=== PATIENT | male | born 1940 | race Caucasian/White ===

== ENCOUNTER 2016-03-07 05:32 | Outpatient (CLI) | payer MEDICARE, OTHER ==
[~2016-03-07] VITALS: Ht 177.8 cm; Wt 87.3 kg
[~2016-03-07 05:32] MED LIST: ACETAMINOPHEN500 M1 PO; ADVIL100 M1 PO; BAYER CHEWABLE81 MG PO; BUTALB-APAP-CA1 EACH PO; FISH OIL 1,2001 CAP PO; GEMFIBROZIL600 MG PO; LEVOTHROXINE; LEVOXYL25 MCG PO; SYNTHROID50 MCG PO
[2016-03-07 07:19] VITALS: Ht 177.8 cm; Wt 87.3 kg
--- NOTE | 2016-03-07 11:53 | NUR ---
1100 XRAY HERE FOR PCXR
--- NOTE | 2016-03-07 11:53 | NUR ---
IV DC WITH CATHER TIP INTACT
--- NOTE | 2016-03-07 11:54 | NUR ---
1130 DEDRICK JAIDEN CALLED PCXR JENNIFER FERGUSON DC
--- NOTE | 2016-03-07 12:07 | NUR ---
VS TAKEN AND PLACED ON POST OP SHEET
== END 2016-03-07 12:20 | disposition home or self-care (01) ==
LOC: D.OPS 05:32 → D.CT 08:00 → D.OPS 08:00 → D.CT 10:30 → D.OPS 12:20
DX: R91.1 Solitary pulmonary nodule (principal)

== ENCOUNTER → 2016-09-18 09:49 | Outpatient (CLI) | payer MEDICARE, OTHER ==
[2016-03-07 07:19] VITALS: BMI 27.6
== END | disposition home or self-care (01) ==
LOC: D.CT 09:49
DX: R91.1 Solitary pulmonary nodule (principal)

== ENCOUNTER 2017-02-21 13:35 | Emergency (ER) | payer MEDICARE, OTHER ==
[2016-03-07 07:19] VITALS: BMI 27.6
== END 2017-02-21 16:03 | disposition home or self-care (01) ==
LOC: D.ER 13:35
DX: J06.9 Acute upper respiratory infection, unspecified (principal); J02.9 Acute pharyngitis, unspecified; J44.9 Chronic obstructive pulmonary disease, unspecified; I10 Essential (primary) hypertension

== ENCOUNTER → 2017-03-29 15:57 | Outpatient (CLI) | payer MEDICARE, OTHER ==
[2016-03-07 07:19] VITALS: BMI 27.6
== END | disposition home or self-care (01) ==
LOC: D.RAD 15:57
DX: R05 Cough (principal)

== ENCOUNTER → 2017-04-12 11:21 | Outpatient (CLI) | payer MEDICARE, OTHER ==
[2016-03-07 07:19] VITALS: BMI 27.6
== END | disposition home or self-care (01) ==
LOC: D.CT 11:21
DX: R91.1 Solitary pulmonary nodule (principal)

== ENCOUNTER → 2017-07-16 11:36 | Outpatient (CLI) | payer MEDICARE, OTHER ==
[2016-03-07 07:19] VITALS: BMI 27.6
== END | disposition home or self-care (01) ==
LOC: D.LAB 11:36
DX: M79.644 Pain in right finger(s) (principal)

== ENCOUNTER 2017-12-03 11:27 | Outpatient (CLI) | payer MEDICARE, OTHER ==
[~2017-12-03] VITALS: Ht 177.8 cm; Wt 90.9 kg
--- NOTE | ~2017-12-03 | HP ---
PATIENT: RIO GUZMAN MEDICAL RECORD: [id number] ACCOUNT: [id number] LOCATION:[facility] : 40 ADMISSION DATE: 12/03/17 PCP: RENA VELASQUEZ MD HISTORY AND PHYSICAL EXAMINATION DIAGNOSES: 1. Unstable angina. 2. Coronary artery disease. 3. Previous percutaneous transluminal coronary angioplasty stent. 4. Hyperlipidemia. HISTORY OF PRESENT ILLNESS: This is a gentleman who presents with 2-3 days of increasing episodes of chest pain, severe chest pain last night. He does have a history of coronary artery disease. Last cardiac stent in 2016 at [facility]. His EKG has nonspecific ST-T abnormalities, especially inferiorly and suggests a previous anteroseptal myocardial infarction. PHYSICAL EXAMINATION: GENERAL APPEARANCE: Well nourished, well developed, appears stated age. Level of distress, comfortable. PSYCHIATRIC: Mental status, alert, normal affect. Orientation, oriented to time, place and person. EYES: Lids and conjunctivae, noninjected. No discharge, no pallor. ENT: Lips, teeth, gums, normal dentition. Oropharynx, no cyanosis, no pallor. NECK: Carotid arteries, bilateral normal upstroke, no bruits, no thrills. JUGULAR VEINS: No jugular venous pressure or distention. CERVICAL LYMPH NODES: Nontender, nonenlarged. THYROID: Not enlarged. Nontender. No nodules. LUNGS: Respiratory effort, unlabored. CHEST: Normal curvature. No thoracic deformity. No chest wall tenderness. Percussion, resonant. Auscultation, clear. No wheezes, no rales, no rhonchi. CARDIOVASCULAR: Precordial exam, nondisplaced. No heaves or pericardial thrills. Rate and rhythm, regular. Heart sounds, normal S1, normal S2. No S3, no gallop, no rub. Systolic murmur, not heard. Diastolic murmur, not heard. EXTREMITIES: No cyanosis, no edema. Peripheral pulses, full and equal in all extremities, except as noted. No bruits appreciated. ABDOMEN: Soft, nondistended. Normal aorta. No bruit. Nontender. No masses. Liver, nontender, no hepatomegaly. Spleen, nontender, no splenomegaly. MUSCULOSKELETAL: No joint tenderness. No joint swelling. No erythema. NEUROLOGICAL: Normal gait, normal strength, normal tone. SKIN: Warm and dry. REVIEW OF SYSTEMS: The patient reports easy bruising but reports no swollen glands. The patient reports no fever, no night sweats, no significant weight gain, no significant weight loss. No significant exercise tolerance. The patient reports no dry eyes, no irritation, no vision change. Patient reports no difficulty hearing and no ear pain. Patient reports no frequent nose bleeds or nose and sinus problems. Patient reports on arm pain on exertion. No shortness of breath while lying down. No history of heart murmur. Patient reports no cough, no wheezing or coughing up blood. Patient reports no abdominal pain, no vomiting. Normal appetite. No diarrhea and not vomiting blood. No nausea and no constipation. Patient reports no incontinence. No difficulty urinating. No hematuria. No increased frequency. Patient reports no muscle aches. No weakness, no arthralgias, no back pain. No swelling of the extremities. Patient reports no abnormal mole, no jaundice, no rashes. Reports HISTORY AND PHYSICAL [id number] KUZMANOVIC,RATKO no loss of consciousness. No weakness and no numbness. No seizures, dizziness, or headaches. The patient reports no depression, no sleep disturbance, feeling safe in a relationship and no alcohol abuse. Patient reports on fatigue. Reports no runny nose or sinus pressure. No itching, no hives, and no frequent sneezing. OVERALL IMPRESSION: Unstable anginal symptomatology. We will proceed with coronary angiography. Further care depends upon findings of the angiography. TRANSINT:[id number] Voice Confirmation ID: [id number] DOCUMENT ID: [id number] JULIOCESAR HIGHTOWER MD at 0923 CC: [id number] DICTATION DATE: 12/03/17 1301 ELEMENTARY TUTOR: 12/03/17 1327 DEP CLI 12/03/17 [facility] [address] [place] [id number]
--- NOTE | ~2017-12-03 | HEMODYNAMI ---
PATIENT:RIO GUZMAN MEDICAL RECORD: [id number] : 40 LOCATION:[facility] ADMISSION DATE: 12/03/17 Generatedon:12/03/201715:20 Patient name: RIO GUZMAN Patient #: [id number] SSN: : 1940 Date of study: 12/03/2017 Page: Of Hemodynamic Procedure Report Patient Data Patient Demographics Procedure consent was obtained First Name: RIO Gender: Male Last Name: THOMAS : 1940 Patient #: [id number] Age: 77 year(s) Race: Unknown Additional ID: [id number] Contact details Address: [address] [place] [address] [place] State: [place] City: [place] Zip code: [address] Past Medical History Allergies: No known allergies Admission Admission Data Admission Date: 12/03/2017 Admission Time: 11:27 Lab Results Lab Result Date: 12/03/2017 Lab Result Time: 0:00 Biochemistry Name Units Result Min Max BUN mg/dl 26 --(----)-* 7 18 Creatinine mg/dl 1.1 --(--*-)-- 0.6 1.3 CBC Name Units Result Min Max Hemoglobin g/dl 15.7 --(--*-)-- 13.5 17.5 Procedure Procedure Types Cath Procedure Diagnostic Procedure C [facility] w/Coronaries Procedure Description Procedure Date Procedure Date: 12/03/2017 Procedure Start Time: 15:11 Procedure End Time: 15:17 Procedure Staff Name Function Jona Eason MD Performing Physician Mojgan Cash RT Monitor Tyron Hidalgo RT Scrub Juve Henry RN Nurse Procedure Data Cath Procedure Fluoroscopy Diagnostic fluoroscopy Total fluoroscopy Time: 1.1 time: 1.1 min min Diagnostic fluoroscopy Total fluoroscopy dose: 285 dose: 285 mGy mGy Contrast Material Contrast Material Type Amount (ml) Isovue 300 47 Entry Location Entry Primary Successful Side Size Upsize Upsize Entry Closure Buenrostro ccessful Closure Location (Fr) 1 (Fr) 2 (Fr) Remarks Device Remarks Radial Right 6 Fr Mechanical artery Short Compression Estimated blood loss: 5 ml Diagnostic catheters Device Type Used For End Catheter Placement DIAGNOSTIC [place] 110cm 5 Procedure Fr catheter ([id number]) Procedure Complications No complications Procedure Medications Medication Administration Route Dosage Oxygen etCO2 Nasal cannula 2 l/min Lidocaine 2% added to field 20 Heparin Flush Bag added to field 2 bags (1000units/500ml NS) 0.9% NaCl I.V. 100 ml/hr Radial Cocktail I.A. 1 syringe (Verapomil 2mg/Nitro 400mcg/Heparin 1500units) Versed I.V. 1 mg Fentanyl I.V. 50 mcg Versed I.V. 1 mg Fentanyl I.V. 50 mcg Hemodynamics Rest Heart Rate: 79 (bpm) Snapshots Pre Cath Intra NCS Post Cath Vital Signs Time Heart Resp SPO2 etCO2 NIBP (mmHg) Rhythm Pain Sedation Rate (ipm) (%) (mmHg) Status Level (bpm) 15:01:29 77 18 98 31.6 143/76(110) NSR 0 (11) 10(A) , No pain 15:06:12 73 12 96 39.2 120/73(104) NSR 0 (11) 10(A) , No pain 15:10:55 77 23 96 40 121/70(94) NSR 0 (11) 9(A) , No pain 15:15:31 90 13 95 39 93/58(74) NSR 0 (11) 9(A) , No pain 15:19:51 69 14 96 40 96/61(78) NSR 0 (11) 10(A) , No pain Medications Time Medication Route Dose Verified Delivered Reason Notes Effectiveness by by 15:00:20 Oxygen etCO2 2 l/min Jona An used for Nasal Jenaro Henry RN procedure cannula 15:00:27 Lidocaine 2% added 20ml Jona Tenorio for local to vial Jenaro Eason MD anesthetic field 15:01:14 Heparin Flush added 2 bags Jona Tenorio used for Bag to Jenaro Eason MD procedure (1000units/500ml field NS) 15:01:24 0.9% NaCl I.V. 100 Jona An Per ml/hr Jenaro Henry RN physician 15:01:38 Radial Cocktail I.A. 1 Jona Tenorio for (Verapomil syringe Jenaro Eason MD vasodilation 2mg/Nitro 400mcg/Heparin 1500units) 15:06:09 Versed I.V. 1 mg Jona An for sedation Jenaro Henry RN 15:06:13 Fentanyl I.V. 50 mcg Jona An for sedation Jenaro Henry RN 15:11:29 Versed I.V. 1 mg Jona An for sedation Jenaro Henry RN 15:11:35 Fentanyl I.V. 50 mcg Jona An for sedation Jenaro Henry RN Procedure Log Time Note 14:45:00 Juve Henry RN sent for patient. Start room use. 14:45:00 Time tracking: Regular hours (M-F 7:00 - 5:00) 14:45:05 Plan of Care:Hemodynamics will remain stable., Cardiac rhythm will remain stable., Comfort level will be maintained., Respiratory function will remain adequate., Patient/ family verbilizes understanding of procedure., Procedure tolerated without complication., Recovers from procedure without complications.. 14:45:50 H&P Date Dictated: 12/03/2017 ER History on chart.. 14:46:15 Lab Result : BUN 26 mg/dl 14:46:15 Lab Result : Creatinine 1.1 mg/dl 14:46:15 Lab Result : Hemoglobin 15.7 g/dl 14:46:28 Patient allergic to No known allergies 14:53:04 Patient received from ED to CCL 1 Alert and oriented. Tansferred to table in Supine position. 14:53:05 Warm blankets applied, and moreno hugger turned on for patient comfort. 14:53:05 Correct patient and procedure confirmed by team. 14:53:10 Signed procedure consent form obtained from patient. 15:00:20 Oxygen 2 l/min etCO2 Nasal cannula was administered by Juve Henry RN; used for procedure; 15:00:27 Lidocaine 2% 20ml vial added to field was administered by Jona Eason MD; for local anesthetic; 15:00:35 Vital chart was started 15:01:14 Heparin Flush Bag (1000units/500ml NS) 2 bags added to field was administered by Jona Eason MD; used for procedure; 15:01:24 0.9% NaCl 100 ml/hr I.V. was administered by Juve Henry RN; Per physician; 15:01:38 Radial Cocktail (Verapomil 2mg/Nitro 400mcg/Heparin 1500units) 1 syringe I.A. was administered by Jona Eason MD; for vasodilation; 15:04:03 Baseline sample Acquired. 15:04:22 Rhythm: sinus rhythm 15:04:39 Family in waiting room. 15:04:59 Pre-procedure instructions explained to patient. 15:04:59 Pre-op teaching completed and patient verbalized understanding. 15:05:12 Was the patient premedicated? Yes 15:05:13 Is patient on blood thinner?Yes 15:05:16 Patient diabetic? No. 15:05:21 Previous problem with sedation/anesthesia? No ? 15:05:22 Snore? No 15:05:24 Sleep apnea? No 15:05:25 Deviated septum? No 15:05:26 Opens mouth fully? Yes 15:05:27 Sticks out tongue? Yes 15:05:28 Airway obstruction? No ? 15:05:31 Dentures? No ? 15:05:33 Modified Wil's test Ulnar < 7 seconds 15:05:36 Patient pain scale 0/10 ?. 15:05:42 IV patent on arrival in left hand with 0.9% NaCl at KVO. 15:05:44 Lab results completed and on chart. 15:05:47 Right Radial & Right Groin area was prepped with chlora-prep and draped in sterile fashion 15:05:48 Alarms reviewed by R. N. 15:05:48 Sharps counted by scrub and verified by R.N. 15:05:49 --------ALL STOP TIME OUT------ 15:05:49 Final Timeout: patient, procedure, and site verified with staff and physician. All members of the team are in agreement. 15:05:51 Right Radial & Right Groin site verified by team. 15:05:54 Physical assessment completed. ASA score P 2 - A patient with mild systemic disease as per Jona Eason MD. 15:05:57 Sedation plan: IV Moderate Sedation Medication:Versed, Fentanyl 15:06:09 Versed 1 mg I.V. was administered by Juve Henry RN; for sedation; 15:06:13 Fentanyl 50 mcg I.V. was administered by Juve Henry RN; for sedation; 15:07:11 Use device set Radial Dx or PCI 15:07:12 ACIST Syringe (90973) opened to sterile field. 15:07:13 Bag Decanter (2001S) opened to sterile field. 15:07:14 ACIST Hand Control (37094) opened to sterile field. 15:07:15 ACIST Manifold (74295) opened to sterile field. 15:07:15 Tegaderm 4 x 4 (1626W) opened to sterile field. 15:07:16 Medline Cath Pack ([id number]) opened to sterile field. 15:07:16 DIAGNOSTIC WIRE .035 260cm J wire (389190) opened to sterile field. 15:07:17 MBrace Wrist Support ([id number]) opened to sterile field. 15:07:17 SHEATH 6Fr Prelude Radial ([id number]) opened to sterile field. 15:10:42 Procedure started. 15:10:42 Full Disclosure recording started 15:10:44 Zero performed for pressure channel P1 15:11:04 Local anesthetic to right radial artery with Lidocaine 2% by Jona Eason MD.INITIAL ACCESS ONLY 15:11:29 Versed 1 mg I.V. was administered by Juve Henry RN; for sedation; 15:11:33 A 6 Fr Short sheath was inserted into the Right Radial artery 15:11:35 Fentanyl 50 mcg I.V. was administered by Juve Henry RN; for sedation; 15:11:51 A DIAGNOSTIC [place] 110cm 5 Fr catheter (159099) was advanced over the wire and used for Procedure. 15:12:39 LV gram done using JENKINS 15:12:41 Injector settings: Ml/sec: 7, Volume: 15, 15:13:09 EF : 40 % 15:13:59 LCA angiography performed. 15:14:35 RCA angiography performed. 15:14:38 Catheter removed. 15:14:53 TR BAND Standard ([id number]) opened to sterile field. 15:14:57 Procedure ended.(Physican Out) 15:15:15 Sheath removed intact; hemostasis achieved with Mechanical Compression to the Right Radial artery. 15:15:19 Fluoroscopy time 01.10 minutes. 15:15:46 Fluoroscopy dose: 285 mGy 15:15:46 Flurop Dose total: 285 15:15:51 Contrast amount:Isovue 300 47ml. 15:15:52 Sharps counted by scrub and verified by R.N. 15:16:02 TR band inflated with 10cc of air. 15:16:07 Post-procedure physical assessment completed. ASA score P 2 - A patient with mild systemic disease as per Jona Eason MD. 15:16:10 Post procedure rhythm: unchanged. 15:16:12 Estimated blood loss: 5 ml 15:16:14 Post procedure instruction explained to patient.Patient verbalizes understanding. 15:16:14 Patient needs reinforcement of post procedure teaching. 15:16:46 Procedure and supply charges have been captured, reviewed, submitted and are correct. 15:16:50 Procedure Complication : No complications 15:16:53 Vital chart was stopped 15:16:53 See physician's report for complete and final results. 15:16:55 Report given to Pre/Post Procedure Room. 15:16:58 Patient transfered to Pre/Post Procedure Room with Bed. 15:16:59 Procedure ended. 15:16:59 Full Disclosure recording stopped 15:17:02 End room use (Document Last) Device Usage Item Name Manufacture Quantity Catalog Number Hospital Part Current M inimal Lot# / Charge Number Stock Stock Serial# Code ACIST Syringe Acist 1 82450 152858 690212 513473 2 0 (80003) [employer] Inc Bag Decanter Microtek 1 2001S 297513 52182 996801 5 (2001S) Medical Inc. ACIST Hand Acist 1 33865 253958 675929 660152 5 Control (84503) [employer] Inc ACIST Manifold Acist 1 49557 356965 440287 537644 5 (23479) [employer] Systems Inc Tegaderm 4 x 4 3M 1 1626W 964113 888672 340032 5 (1626W) Medline Cath Cardinal 1 [id number] 037186 69701 223461 5 [facility] ([id number]) DIAGNOSTIC WIRE St Jacky 1 291959 084648 565865 685583 3 0 .035 260cm J wire (959256) MBrace Wrist Advanced 1 140-0250-00 717708 75574 263759 5 Support Vascular ([id number]) Dynamics SHEATH 6Fr Merit 1 [id number] 150716 055201 374626 5 Prelude Radial Medical ([id number]) DIAGNOSTIC Terumo 1 40-5011 965134 958016 715626 5 [place] 110cm 5 Fr catheter (225870) TR BAND Terumo 1 [id number] 041756 535262 401031 4 0 Standard ([id number]) Signature Audit [place] Stage Time Signature Unsigned Intra-Procedure 12/03/2017 Mojgan Cash 3:20:26 PM RT(R) Signatures Monitor : Mojgan Cash Signature : RT Date : Time : [place] [id number] [place] [id number]
--- NOTE | ~2017-12-03 | OP ---
PATIENT NAME: RIO GUZMAN MEDICAL RECORD: [id number] :40 LOCATION:D.[facility] ADMISSION DATE: SURGEON: JULIOCESAR HIGHTOWER MD DATE OF OPERATION: 12/03/2017 PROCEDURES: 1. Left heart catheterization. 2. Selective coronary angiography. 3. Left ventriculogram. INDICATION: Chest pain compatible with angina. PROCEDURE IN DETAIL: After informed consent was obtained and after a detailed description of risks, benefits as well as alternative therapies, the patient elected to proceed with angiogram and heart catheterization. The right radial area was prepped and draped in normal sterile fashion. Right radial artery was cannulated via modified Seldinger technique with placement of 5-Gabonese sheath. All catheters exchanged through this sheath. FINDINGS: Left ventriculogram was performed in standard 30-degree JENKINS view, reveals good cardiac wall motion throughout all segments. Overall ejection fraction estimated 60%. SELECTIVE CORONARY ANGIOGRAPHY: Left main, left anterior descending, left circumflex, and right coronary artery are all smooth-walled vessels with no angiographic evidence of coronary artery disease. OVERALL IMPRESSION: 1. No angiographic evidence of coronary artery disease. 2. Normal left heart pressures. 3. Normal left ventricular systolic all function. Chest pain is noncardiac in etiology. No further cardiac workup needs to be ascertained. TRANSINT:[id number] Voice Confirmation ID: [id number] DOCUMENT ID: [id number] JULIOCESAR HIGHTOWER MD at 0923 CC: [id number] DICTATION DATE: 12/03/17 1520 OIL WELL SERVICE OPERATOR: 12/03/17 1618 DEP CLI 12/03/17 [place] [id number] [place] [id number]
[2017-12-03 11:29] VITALS: Ht 177.8 cm; Wt 90.9 kg
[2017-12-03 12:11] LABS: BASOPHILS 0.2 % (0-2); EOSINOPHILS 0.8 % (0-7); HEMATOCRIT 44.3 % (42.0-54.0); HEMOGLOBIN 15.7 g/dL (13.5-17.5); IMMATURE GRANULOCYTES 0.2 % (0-5); LYMPHOCYTES 41.5 % (15-50); MCH 32.1 pg (26.0-34.0); MCHC 35.4 g/dL (31.0-37.0); MCV 90.6 fL (80.0-100.0); MEAN PLATELET VOLUME 9.9 fL (7.4-10.4); MONOCYTES 5.7 % (2-11); NEUTROPHILS 51.6 % (40-80); PLATELET COUNT 134 10x3/uL (130-400); RBC 4.89 10x6/uL (4.20-6.10); RDW 12.1 % (11.5-14.5); WBC 6.7 10x3/uL (4.8-10.8)
[2017-12-03 12:21] LABS: APTT 25.3 SECONDS (22.8-39.4); INR 0.98 (0.85-1.17); PROTIME 12.6 SECONDS (11.6-15.0)
[2017-12-03 12:23] LABS: D-DIMER-QUANTITATIVE < 0.27 ug/mLFEU (0.20-0.54)
[2017-12-03 12:27] LABS: ALBUMIN 4.3 g/dL (3.4-5.0); ALKALINE PHOSPHATASE 71 U/L (46-116); ALT (SGPT) 24 U/L (10-68); BILIRUBIN - TOTAL 1.12 mg/dL (0.2-1.3); CALC OSMOLALITY 282 mosm/kg (275-300); CALCIUM 9.3 mg/dL (8.5-10.1); CARBON DIOXIDE 27.9 mmol/L (21.0-32.0); CHLORIDE - SERUM 101 mmol/L (98-107); CREATININE - SERUM 1.1 mg/dL (0.6-1.3); GLUCOSE 131 mg/dL (74-106); POTASSIUM - SERUM 4.1 mmol/L (3.5-5.1); PROTEIN - SERUM 7.8 g/dL (6.4-8.2); SODIUM 138 mmol/L (136-145); UREA NITROGEN 26 mg/dL (7-18); eGFR NON AFRICAN AMERICAN 69 mL/min (90-120)
[2017-12-03 12:39] LABS: CKMB 0.8 U/L (0.0-3.6); CREATINE KINASE 46 UL (21-232); MAGNESIUM - SERUM 2.1 mg/dL (1.8-2.4); PRO BNP 38 pg/mL (0-450); THYROID STIMULATING HORMONE 1.11 uIU/mL (0.36-3.74)
[2017-12-03 12:41] LABS: TROPONIN-I < 0.017 ng/mL (0.000-0.060)
[2017-12-03 14:45] VITALS: BP 139/77
== END 2017-12-03 17:45 | disposition home or self-care (01) ==
LOC: D.ER 11:27 → D.CATH 11:27 → EDSTATUS 13:07 → D.CATH 17:45
PROVIDERS: Family Medicine
DX: R07.89 Other chest pain (principal); I25.10 Atherosclerotic heart disease of native coronary artery without angina pectoris; Z95.5 Presence of coronary angioplasty implant and graft; E78.5 Hyperlipidemia, unspecified; Z01.812 Encounter for preprocedural laboratory examination

== ENCOUNTER → 2018-01-09 08:31 | Outpatient (CLI) | payer MEDICARE, OTHER ==
[2017-12-03 11:29] VITALS: BMI 28.7
== END | disposition home or self-care (01) ==
LOC: D.CT 08:00
DX: R91.1 Solitary pulmonary nodule (principal)

== ENCOUNTER 2018-03-16 23:05 | Inpatient (IN) | payer MEDICARE, OTHER ==
[~2018-03-16] VITALS: Ht 177.8 cm; Wt 88.5 kg
[2018-03-16 23:25] LABS: BASOPHILS 0.1 % (0-2); EOSINOPHILS 0.1 % (0-7); HEMATOCRIT 38.1 % (42.0-54.0); IMMATURE GRANULOCYTES 0.5 % (0-5); LYMPHOCYTES 20.9 % (15-50); MCH 31.5 pg (26.0-34.0); MCHC 34.1 g/dL (31.0-37.0); MCV 92.3 fL (80.0-100.0); MEAN PLATELET VOLUME 9.3 fL (7.4-10.4); MONOCYTES 5.8 % (2-11); NEUTROPHILS 72.6 % (40-80); PLATELET COUNT 195 10x3/uL (130-400); RBC 4.13 10x6/uL (4.20-6.10); RDW 11.9 % (11.5-14.5); WBC 13.3 10x3/uL (4.8-10.8)
--- NOTE | 2018-03-16 23:36 | NUR ---
SWITCHED PATIENT FROM 15L NONREBREATHER TO 4L NC PER EDP GRIMALDO
[2018-03-16 23:41] LABS: ALBUMIN 3.3 g/dL (3.4-5.0); ALKALINE PHOSPHATASE 64 U/L (46-116); ALT (SGPT) 59 U/L (10-68); CALC OSMOLALITY 288 mosm/kg (275-300); CALCIUM 8.4 mg/dL (8.5-10.1); CARBON DIOXIDE 24.7 mmol/L (21.0-32.0); CHLORIDE - SERUM 105 mmol/L (98-107); GLUCOSE 111 mg/dL (74-106); POTASSIUM - SERUM 4.1 mmol/L (3.5-5.1); PROTEIN - SERUM 7.2 g/dL (6.4-8.2); SODIUM 141 mmol/L (136-145); UREA NITROGEN 32 mg/dL (7-18); eGFR NON AFRICAN AMERICAN 77 mL/min (90-120)
[2018-03-16 23:46] LABS: CREATINE KINASE 75 UL (21-232); LIPASE 161 U/L (73-393); PRO BNP 154 pg/mL (0-450); TROPONIN-I < 0.017 ng/mL (0.000-0.060)
[2018-03-16 23:47] VITALS: BP 94/55
[2018-03-17] VITALS (27 sets, daily range): BP systolic 92–157; BP diastolic 47–89; BMI 28.0
--- NOTE | 2018-03-17 00:20 | NUR ---
RN ADMINISTERED IV ZOFRAN PER EDP ORDERS. MONITOR REPORTS HR 203, SVT. EDP AT BEDSIDE. PT MOVED TO TRAUMA ROOM 3.
--- NOTE | 2018-03-17 00:22 | NUR ---
PT PLACED ON NON REBREATHER PER EDP ORDERS.
--- NOTE | 2018-03-17 01:38 | NUR ---
PT LEFT ED VIA STRETCHER FOR CT SCAN, RN AT BEDSIDE. PT TOLERATED SCAN WELL, HR 130-145.
--- NOTE | 2018-03-17 02:03 | NUR ---
PT DAUGHTER, RIYA, PROVIDED PHONE NUMBER [phone]
--- NOTE | 2018-03-17 03:05 | NUR ---
ZOSYN INFUSION STOPPED PRIOR TO TRANSPORT TO ICU. INFUSION COMPLETE.
--- NOTE | 2018-03-17 03:13 | NUR ---
PT REC'D TO ROOM 2309 VIA STRETCHER, PT ABLE TO MOVE SELF OVER TO BED, ALL MONITORS ESTABLISHED, PT AWAKE, ALERT, AND ORIENTED, O2 AT 15 LITERS VIA HIGH FLOW NC, O2 SAT 96%, CM-SR @ 84, LEFT A/C PIV AND LEFT HAND PIV BOTH PATENT AND TAPED SECURELY, SALINE LOCKED, RIGHT WRIST PIV WITH NS BOLUS INFUSING, PT DENIES PAIN OR SOB, BP STABLE, BED IN LOW POSITION, CALL LIGHT IN REACH.
--- NOTE | 2018-03-17 04:30 | NUR ---
I AND O COMPETED AND CHARTED
--- NOTE | 2018-03-17 05:00 | NUR ---
PT ASSISTED TO STAND AT BS TO VOID VIA URINAL, VOIDED 350CC DARK YELLOW URINE, PT GOT SELF BACK TO BED, DENIES PAIN OR NEEDS, SR UP X 2, CALL LIGHT WITHIN REACH.
--- NOTE | 2018-03-17 08:09 | NUR ---
0700 AWAKE ALERT VOICES NO COMPLAINTS
--- NOTE | 2018-03-17 12:22 | NUR ---
0900 APPETITE GOOD WANTS TO REST VOIDING WITHOUT DIFFICULTY
--- NOTE | 2018-03-17 12:23 | NUR ---
[address] ESPARZA ROUNDING ON PATIENT WITH UPDATES PROVIDED
--- NOTE | 2018-03-17 12:25 | NUR ---
1225 VISITORS AT BEDSIDE HENOK ALICEA
--- NOTE | 2018-03-17 19:48 | NUR ---
PT RECEIVED WITH EYES CLOSED AND CHEST RISING. EASILY AWOKEN TO VERBAL STIMULI. DENIES PAIN. VITAL SIGNS WITHIN NORMAL LIMITS. PT ALERT AND ORIENTED. CALL LIGHT IN REACH. ASSESSMENT COMPLETED, SEE FLOW SHEET. WILL CONTINUE TO OBSERVE.
--- NOTE | 2018-03-17 20:09 | NUR ---
1700 DR ESPARZA ROUNDING ON PATIENT O2 REDUCED TO 3L/ HIGH FLOW . 02 SAT REMAINS 97%
--- NOTE | 2018-03-17 20:09 | NUR ---
1300 VOIDING WITHOUT DIFFICULTY VOICES NO COMPLAINTS
--- NOTE | 2018-03-17 23:05 | NUR ---
PT RESTING WITH EYES CLOSED AND CHEST RISING. EASILY AWOKEN TO VERBAL STIMULI. REASSESSMENT COMPLETED, SEE FLOW SHEET. WILL CONTINUE TO OBSERVE.
[2018-03-18] VITALS (11 sets, daily range): BP systolic 118–154; BP diastolic 56–98
--- NOTE | 2018-03-18 01:58 | NUR ---
PT WITH EYES CLOSED AND CHEST RISING. NO S/S OF DISTRESS. WILL CONTINUE TO OBSERVE.
--- NOTE | 2018-03-18 03:21 | NUR ---
REASSESSMENT COMPLETED, SEE FLOW SHEET. URINE COLLECTED AND SENT TO LAB.
[2018-03-18 03:29] LABS: APPEARANCE CLEAR (CLEAR); BILIRUBIN NEGATIVE (NEGATIVE); COLOR YELLOW (YELLOW); GLUCOSE 100 mg/dL (NEGATIVE); KETONE NEGATIVE (NEGATIVE); NITRITE NEGATIVE (NEGATIVE); PH 5.5 (5.0-6.0); PROTEIN NEGATIVE (NEGATIVE); SPECIFIC GRAVITY 1.015 (1.005-1.020); UROBILINOGEN NORMAL (NORMAL)
--- NOTE | 2018-03-18 05:25 | NUR ---
PT WITH EYES CLOSED AND CHEST RISING. NO S/S OF DISTRESS. CALL LIGHT IN REACH. WILL CONTINUE TO OBSERVE.
[2018-03-18 05:32] LABS: CARBON DIOXIDE 24.9 mmol/L (21.0-32.0); CHLORIDE - SERUM 104 mmol/L (98-107); CREATININE - SERUM 0.9 mg/dL (0.6-1.3); POTASSIUM - SERUM 3.9 mmol/L (3.5-5.1); SODIUM 138 mmol/L (136-145); eGFR NON AFRICAN AMERICAN 87 mL/min (90-120)
[2018-03-18 05:39] LABS: HEMATOCRIT 36.6 % (42.0-54.0); HEMOGLOBIN 12.3 g/dL (13.5-17.5); MCH 31.1 pg (26.0-34.0); MCHC 33.6 g/dL (31.0-37.0); MCV 92.7 fL (80.0-100.0); MEAN PLATELET VOLUME 9.6 fL (7.4-10.4); PLATELET COUNT 183 10x3/uL (130-400); RBC 3.95 10x6/uL (4.20-6.10); RDW 11.8 % (11.5-14.5)
[2018-03-18 05:40] LABS: CALC OSMOLALITY 284 mosm/kg (275-300); GLUCOSE 180 mg/dL (74-106); UREA NITROGEN 23 mg/dL (7-18)
[2018-03-18 05:54] LABS: WBC 7.9 10x3/uL (4.8-10.8)
[2018-03-18 08:32] LABS: LYMPHOCYTES 11 % (15-50); MONOCYTES 2 % (2-11); NEUTROPHILS 84 % (40-80); PLATELET ESTIMATE NORMAL
[2018-03-18 08:33] LABS: ROULEAUX OCC
--- NOTE | 2018-03-18 09:47 | NUR ---
0700 AWAKE ALERT DENIES PAIN ASSESSMENT COMPLETE
--- NOTE | 2018-03-18 09:48 | NUR ---
0900 APPETITE GOOD ATE 90% BREAKFAST TRANSFER ORDERS ARE PLACED ON CHART WAITING FOR A ROOM
--- NOTE | 2018-03-18 12:55 | NUR ---
1100 UP AD JAJA IN ROOM WITH NO COMPLAINTS
--- NOTE | 2018-03-18 14:08 | NUR ---
1300 APPETITE GOOD AT BEDSIDE DENIES PAIN FREQUENT NON-PRODUCTIVE COUGH NOTED
--- NOTE | 2018-03-18 14:55 | NUR ---
PT TO ROOM 2218 FROM ICU VIA WHEELCHAIR. PT IS UP AT BEDSIDE. HE IS WITHOUT DISTRESS.
--- NOTE | 2018-03-18 20:00 | NUR ---
ASSESSMENT PER FLOWSHEET. IV PATENT LEFT HAND SALINE LOCKED. TELM. SHOWS SR W/BBB WITH HR 80. SCD'S ON SR UP X2 CALL LIGHT WITHIN REACH. O2 ON 3L/M HIGH FLOW. NO DISTRESS.
--- NOTE | 2018-03-18 21:00 | NUR ---
MARCIO PRATHER PER MAY. RESTING QUIETLY DENIES NEEDS.
--- NOTE | 2018-03-19 00:56 | NUR ---
EYES CLOSED RESPIRATIONS WITH EASE AND UNLABORED. MEDS GIVEN PER MAY.
[2018-03-19 04:09] VITALS: BP 134/75
[2018-03-19 04:55] LABS: BASOPHILS 0.1 % (0-2); EOSINOPHILS 0 % (0-7); HEMATOCRIT 34.8 % (42.0-54.0); HEMOGLOBIN 11.9 g/dL (13.5-17.5); IMMATURE GRANULOCYTES 0.9 % (0-5); LYMPHOCYTES 11.7 % (15-50); MCH 31.2 pg (26.0-34.0); MCHC 34.2 g/dL (31.0-37.0); MCV 91.1 fL (80.0-100.0); MEAN PLATELET VOLUME 9.5 fL (7.4-10.4); MONOCYTES 4.2 % (2-11); NEUTROPHILS 83.1 % (40-80); PLATELET COUNT 185 10x3/uL (130-400); RBC 3.82 10x6/uL (4.20-6.10); RDW 11.8 % (11.5-14.5)
[2018-03-19 04:57] LABS: CALC OSMOLALITY 291 mosm/kg (275-300); CALCIUM 8.6 mg/dL (8.5-10.1); CARBON DIOXIDE 24.5 mmol/L (21.0-32.0); CHLORIDE - SERUM 105 mmol/L (98-107); GLUCOSE 212 mg/dL (74-106); POTASSIUM - SERUM 3.7 mmol/L (3.5-5.1); SODIUM 140 mmol/L (136-145); eGFR NON AFRICAN AMERICAN 77 mL/min (90-120)
[2018-03-19 05:04] LABS: WBC 11.9 10x3/uL (4.8-10.8)
[2018-03-19 05:07] LABS: UREA NITROGEN 33 mg/dL (7-18)
[2018-03-19 08:36] VITALS: BP 132/78
[2018-03-19 13:06] VITALS: BP 127/52
[2018-03-19 17:00] VITALS: BP 138/63
--- NOTE | 2018-03-19 17:54 | MORECARE ---
CASE MANAGEMENT DISCHARGE SUMMARY PATIENT: RIO GUZMAN UNIT: [id number] ADM DATE: 03/17/18 AGE: 77 : 40 SEX: M ROOM/BED: D.2218 AUTHOR: KAITLYNN GILES PHYSICIAN: REFERRING PHYSICIAN: RENA VELASQUEZ MD DATE OF SERVICE: 03/19/18 Discharge Plan Patient Name: RIO GUZMAN Facility: [facility]:[place] : 1940 Planned Disposition: Home Anticipated Discharge Date: 03/21/18 Discharge Date: Expected LOS: 4 Initial Reviewer: [email or web address] Initial Review Date: 03/19/2018 Generated: 03/19/18 6:54 pm DCPIA - Discharge Planning Initial Assessment Updated by [email or web address]: Aele Nunez on 03/19/18 5:52 pm * Is the patient Alert and Oriented? Yes * How many steps to enter\exit or inside your home? * PCP DR. VELASQUEZ * Pharmacy [facility] [address] * Preadmission Environment Home with Family * ADLs Independent * Equipment None * List name and contact numbers for known caregivers / representatives who currently or will assist patient after discharge: RIYA (DAUGHTER) [phone] * Verbal permission to speak to the caregivers and representatives has been obtained from the patient. Yes * Community resources currently utilized None * Additional services required to return to the preadmission environment? Yes * Can the patient safely return to the preadmission environment? Yes * Has this patient been hospitalized within the prior 30 days at any hospital? No Patient Name: RIO GUZMAN Page [id number] at 1754 All edits/amendments must be made on the electronic document DICTATION DATE: 03/19/181753 ENVIRONMENTAL COMPLIANCE MANAGER: VITOR 03/19/181753 RPT#: [id number] DC DATE: STATUS: ADM IN [facility] [address] [place] [address] END OF REPORT
--- NOTE | 2018-03-19 18:03 | MORECARE ---
CASE MANAGEMENT DISCHARGE SUMMARY PATIENT: RIO GUZMAN UNIT: [id number] ADM DATE: 03/17/18 AGE: 77 : 40 SEX: M ROOM/BED: D.2218 AUTHOR: CHAN,DOC PHYSICIAN: REFERRING PHYSICIAN: RENA VELASQUEZ MD DATE OF SERVICE: 03/19/18 Discharge Plan Patient Name: RIO GUZMAN Facility: [facility]:[place] : 1940 Planned Disposition: Home Anticipated Discharge Date: 03/21/18 Discharge Date: Expected LOS: 4 Initial Reviewer: [email or web address] Initial Review Date: 03/19/2018 Generated: 03/19/18 7:03 pm Comments DCP- Discharge Planning Updated by [email or web address]: Alee Nunez on 03/19/18 4:[address] Patient Name: RIO GUZMAN Admission Status: ER Accout number: [id number] Admission Date: 03-17-2018 : 1940 Admission Diagnosis: Attending: RENA VELASQUEZ Current LOS: 2 Anticipated DC Date: 03-21-2018 Planned Disposition: Home Primary Insurance: MEDICARE A & B Discharge Planning Comments: CM MET WITH PATIENT AND FAMILY REGARDING D/C NEEDS AND PLANS. PATIENTS DAUGHTER (RIYA) SPOKE WITH CM. PATIENT LIVES WITH HIS AND WILL RETURN THERE AT DISCHARGE. PATIENTS DAUGHTER STATED SHE WILL DRIVE PATIENT HOME. THERE ARE 7 STEPS TO ENTER HOME AND NO STAIRS ONCE INSIDE. PATIENT IS INDEPENDENT WITH HIS CARE AND HAS NO DME. PATIENTS PCP IS DR. VELASQUEZ AND USES [facility] [address]. PATIENT DOES NOT WANT HOME HEALTH. CM WILL CONTINUE TO FOLLOW PATIENT WITH D/C NEEDS AND PLANS. [facility] [address] RIYA (DAUGHTER) [phone] Camp Recreation Specialist: Alee Nunez DCPIA - Discharge Planning Initial Assessment Updated by [email or web address]: Alee Nunez on 03/19/18 5:52 pm * Is the patient Alert and Oriented? Yes * How many steps to enter\exit or inside your home? * PCP DR. VELASQUEZ * Pharmacy [facility] [address] * Preadmission Environment Home with Family * ADLs Independent * Equipment None * List name and contact numbers for known caregivers / representatives who currently or will assist patient after discharge: RIYA (DAUGHTER) [phone] * Verbal permission to speak to the caregivers and representatives has been obtained from the patient. Yes * Community resources currently utilized None * Additional services required to return to the preadmission environment? Yes * Can the patient safely return to the preadmission environment? Yes * Has this patient been hospitalized within the prior 30 days at any hospital? No Last DP export: 03/19/18 4:54 p Patient Name: RIO GUZMAN Page [id number] at 1803 All edits/amendments must be made on the electronic document DICTATION DATE: 03/19/181801 APPLIANCE SERVICE SUPERVISOR: VITOR 03/19/181801 RPT#: [id number] DC DATE: STATUS: ADM IN [facility] [address] [place] [address] END OF REPORT
[2018-03-19 20:00] VITALS: BP 144/81
--- NOTE | 2018-03-20 03:45 | NUR ---
EYES CLOSED RESPIRATIONS WITH EASE AND UNLABORED.
[2018-03-20 04:19] LABS: BASOPHILS 0.1 % (0-2); EOSINOPHILS 0 % (0-7); HEMATOCRIT 36.9 % (42.0-54.0); HEMOGLOBIN 12.3 g/dL (13.5-17.5); IMMATURE GRANULOCYTES 1.4 % (0-5); LYMPHOCYTES 10.6 % (15-50); MCH 30.8 pg (26.0-34.0); MCHC 33.3 g/dL (31.0-37.0); MCV 92.3 fL (80.0-100.0); MEAN PLATELET VOLUME 9.4 fL (7.4-10.4); MONOCYTES 3.5 % (2-11); NEUTROPHILS 84.4 % (40-80); PLATELET COUNT 212 10x3/uL (130-400); WBC 13.3 10x3/uL (4.8-10.8)
[2018-03-20 05:21] VITALS: BP 146/81
[2018-03-20 08:47] VITALS: BP 133/78
--- NOTE | 2018-03-20 10:20 | NUR ---
PATIENT SATS WNL WITHOUT O2. RT TURNED O2 OFF. PATIENT WANTS TO LEAVE NC ON. WILL CONTINUE TO MONITOR. CALL LIGHT WITHIN REACH.
[2018-03-20 11:20] LABS: ANA REFLEX - ANTICHROMATIN ABS <0.2 AI (0.0-0.9); ANA REFLEX - CENTROMERE B ABS <0.2 AI (0.0-0.9); ANA REFLEX - DBL STRANDED DNA 1 IU/mL (0-9); ANA REFLEX - DIRECT Positive (Negative); ANA REFLEX - JO-1 AB <0.2 AI (0.0-0.9); ANA REFLEX - RNP ANTIBODIES 1.3 AI (0.0-0.9); ANA REFLEX - SCL-70 <0.2 AI (0.0-0.9); ANA REFLEX - SJOGRENS AB SSA <0.2 AI (0.0-0.9); ANA REFLEX - SJOGRENS AB SSB 0.2 AI (0.0-0.9); ANA REFLEX - SMITH AB <0.2 AI (0.0-0.9)
--- NOTE | 2018-03-20 16:42 | CN ---
PATIENT NAME:RIO GUZMAN MEDICAL RECORD: [id number] : 40 LOCATION:D.MS [id number] ADMIT DATE: 03/17/18 ACCOUNT: [id number] CONSULTING PHYSICIAN: ANASTASIYA ESPARZA MD REFERRING PHYSICIAN: MUKESH VELASQUEZ MD DATE OF CONSULTATION: 03/17/2018 CONSULT REQUESTING PHYSICIAN: Mukesh Velasquez MD REASON FOR CONSULTATION: Acute exacerbation of COPD, cavitating lesion of the lung. HISTORY: The patient has upper respiratory tract infection. He was seen in Dr. Velasquez's office. He was given Zithromax and Decadron, but the patient was not getting any better. The patient came in with shortness of breath, wheezing, feverish, generalized bodyaches and pain, and coughing. The cough is not productive with much sputum. The patient has cavitating lung lesion and pulmonary nodule, which is increasing and decreasing in size. He is also having lymphadenopathy. The patient is continuously followed since 2013. He had probably 3 lung biopsies over the last 4 years and they were all negative for any malignancy. There were focal necrosis and fibrosis. The AFB stain was negative and no fungus was identified or cultured. He also had a PET scan in the past and the maximum SUV was 2.7. His last CT scan was in April 2017. PAST MEDICAL HISTORY: 1. COPD. 2. Ex-smoker. 3. History of chronic bronchitis. 4. Thickening of the pleura. 5. Pulmonary nodules. 6. COPD. 7. He has hypothyroidism. ALLERGIES: There are no known drug allergies. MEDICATIONS: [employer] was reviewed. PERSONAL AND SOCIAL HISTORY: The patient has remote history of smoking. He is nondrinker. PAST SURGICAL HISTORY: He had lung biopsy in the past times 2. PHYSICAL EXAMINATION: GENERAL: Now, the patient is lying comfortably in bed. He is not in acute distress. VITAL SIGNS: The blood pressure is 148/60, pulse is 89, respiration is 18, temperature 98.6, and SpO2 is 99% to 100% on 15 liters nasal cannula. On arrival, his temperature was 101.5. HEENT: Conjunctivae are pink. Sclerae are nonicteric. NECK: Neck is supple. No JVD. CHEST: The chest excursion is minimal on both sides. There is wheeze on forceful expiration. HEART: Rhythm regular. Normal sound. No murmur. CONSULT REPORT [id number] RIO GUZMAN ABDOMEN: Abdomen is soft. Bowel sounds present. No hepatosplenomegaly. RECTAL: Deferred. EXTREMITIES: No cyanosis. No clubbing. No pedal edema. SKIN: The skin is warm. Normal turgor. CENTRAL NERVOUS SYSTEM: The patient is awake and alert. There is no obvious cranial nerve abnormality. The gait was not tested. DIAGNOSTIC DATA: CT scan of the chest; there is a cavitating lesion in the right upper lobe. It is decreasing in size, is 3.1 x 3.5 cm, comparing to the CT scan in January 2018. There is a devlopment of nodular-appearing airspace disease in the right lower lobe, lingular region, and left upper lobe. There is also mediastinal lymphadenopathy. LABORATORY DATA: CBC; WBC is 13.3, hemoglobin 13, hematocrit 38.1, and platelet count 195. TSH is 0.58. IMPRESSION: 1. Bunqi-qh-xkokopf hypoxic respiratory failure. 2. Acute exacerbation of COPD. 3. Bilateral pneumonia. 4. Mediastinal lymphadenopathy. 5. Cavitary lesion in the right upper lobe, stable and decreasing in size. The workup was negative in the past for any infectious process. 6. Leukocytosis. 7. Ex-smoker. RECOMMENDATION: 1. Supplemental oxygen to keep the SpO2 above 90%. 2. Brovana and budesonide nebulizer. 3. Albuterol/ipratropium nebulizer. 4. Methylprednisolone IV. 5. Levaquin IV. 6. Cefepime IV. 7. Follow up labs and chest radiograph. Dr. Velasquez, thank you for involving me in the care of Mr. Guzman. TRANSINT:[id number] Voice Confirmation ID: [id number] DOCUMENT ID: [id number] ANASTASIYA ESPARZA MD at 1642 CC: [id number] DICTATION DATE: 03/17/181805 LOUVER DOOR ASSEMBLER: 03/17/182126 ADM IN [address] [address]
[2018-03-20 16:59] VITALS: BP 154/83
--- NOTE | 2018-03-20 17:59 | NUR ---
PATIENT IN BED WITH IV INTACT. O2 PLACED BACK ON BY DR. VIZCAINO EARLIER. PATIENT HAS NO COMPLAINTS OR SIGNS OF DISTRESS. CALL LIGHT WITHIN REACH.
--- NOTE | 2018-03-20 20:00 | NUR ---
ASSESSMENT PER FLOWSHEET. IV PATENT LEFT HAND OF NS AT 5 CC'S/HR SITE CLEAR. O2 ON 3L/M HIGH FLOW. ALERT/ORIENTED X3 CALL LIGHT WITHIN REACH SR UP X2 DENIES NEEDS.
[2018-03-20 20:08] VITALS: BP 141/77
--- NOTE | 2018-03-20 21:15 | NUR ---
MEDS GIVEN PER MAR.
--- NOTE | 2018-03-21 | NUR ---
EYES CLOSED RESPIRATIONS WITH EASE AND UNLABORED.
[2018-03-21 00:31] VITALS: BP 140/80
--- NOTE | 2018-03-21 01:05 | NUR ---
EYES CLOSED RESPIRATIONS WITH EASE AND UNLABORED. MEDS GIVEN PER MAY.
[2018-03-21 03:13] LABS: ANGIOTENSIN CONVERTING ENZYME 37 U/L (14-82)
[2018-03-21 04:34] VITALS: BP 148/80
--- NOTE | 2018-03-21 06:18 | NUR ---
AWAKE ALERT MEDS GIVEN PER MAY. DENIES NEEDS
--- NOTE | 2018-03-21 06:45 | NUR ---
PT IN BED IN LOW FOWLERS POSITION. ALERT AND ORIENTED X4. RESPIRATIONS EVEN AND UNLABORED. VITAL SIGNS STABLE AND AFEBRILE. NO VISUAL CUES OF DISTRESS NOTE. DENIES ANY OTHER NEEDS AT THIS TIME. BED LOW, SIDE RAILS UP X2. CALL LIGHT IN REACH. WILL CONTINUE TO MONITOR.
[2018-03-21 10:55] VITALS: BP 145/82
[2018-03-21 12:09] VITALS: BP 145/94
[2018-03-21 17:15] LABS: ANCA - ANTIMYELOPEROXIDASE <9.0 U/mL (0.0-9.0); ANCA - ANTIPROTEINASE 3 <3.5 U/mL (0.0-3.5); ANCA - ATYPICAL <1:20 titer (Neg:<1:20); ANCA - CYTOPLASMIC <1:20 titer (Neg:<1:20); ANCA - PERINUCLEAR <1:20 titer (Neg:<1:20)
--- NOTE | 2018-03-21 19:00 | NUR ---
REPORT RECEIVED AND CARE OF PT ASSUMED. PT LYING IN LOW VELEZ'S POSITION WATCHING TV. IV IN LEFT HAND PATENT WITH NS INFUSING AT KVO. TELEMETRY IN PLACE AND READING SR AT THIS ASSESSMENT. WILL MONITOR FOR NEEDS.
[2018-03-21 20:20] VITALS: BP 138/74
--- NOTE | 2018-03-21 21:10 | NUR ---
HS MEDICATIONS GIVEN. WILL CONTINUE TO MONITOR FOR NEEDS.
--- NOTE | 2018-03-22 00:18 | NUR ---
PT RESTING QUIETLY ON RIGHT SIDE WITH EYES CLOSED AND EASY RESPIRAITONS. CALL LIGHT WITHIN REACH.
[2018-03-22 04:05] LABS: HEMATOCRIT 39.6 % (42.0-54.0); HEMOGLOBIN 13.4 g/dL (13.5-17.5); MCH 31.1 pg (26.0-34.0); MCHC 33.8 g/dL (31.0-37.0); MCV 91.9 fL (80.0-100.0); MEAN PLATELET VOLUME 8.9 fL (7.4-10.4); PLATELET COUNT 220 10x3/uL (130-400); RBC 4.31 10x6/uL (4.20-6.10); RDW 11.9 % (11.5-14.5); WBC 13.1 10x3/uL (4.8-10.8)
[2018-03-22 04:36] LABS: CALC OSMOLALITY 283 mosm/kg (275-300); CARBON DIOXIDE 24.7 mmol/L (21.0-32.0); CHLORIDE - SERUM 103 mmol/L (98-107); CREATININE - SERUM 0.9 mg/dL (0.6-1.3); POTASSIUM - SERUM 4.2 mmol/L (3.5-5.1); SODIUM 138 mmol/L (136-145); UREA NITROGEN 26 mg/dL (7-18); eGFR NON AFRICAN AMERICAN 87 mL/min (90-120)
[2018-03-22 04:40] LABS: GLUCOSE 161 mg/dL (74-106)
[2018-03-22 05:06] LABS: EOSINOPHILS 1 % (0-7); LYMPHOCYTES 13 % (15-50); MONOCYTES 3 % (2-11); NEUTROPHILS 75 % (40-80); PLATELET ESTIMATE NORMAL
[2018-03-22 05:53] VITALS: BP 132/70
[2018-03-22 07:27] VITALS: BP 147/85
--- NOTE | 2018-03-22 08:00 | NUR ---
ASSESSMENT PER FLOW SHEET. PT IS WITHOUT DISTRESS.CALL LIGHT IN REACH. MONITOR FOR NEEDS
[2018-03-22 12:03] VITALS: BP 130/70
--- NOTE | 2018-03-22 17:09 | NUR ---
FAMILY TO VISIT. PT IS WITHOUT DISTRESS.CALL LIGHT IN REACH
--- NOTE | 2018-03-22 18:00 | NUR ---
REMAINS WITHOUT CHANGE FROM INITIAL SHIFT ASSESSMENT.CONT PLAN OF CARE
--- NOTE | 2018-03-22 19:00 | NUR ---
REPORT RECEIVED AND CARE OF PT ASSUMED. PT LYING IN LOW VELEZ'S POSITION WATCHING TV. IV IN LEFT HAND PATENT WITH NS INFUISNG AT 30 ML / HR. WILL MONITOR FOR NEEDS.
[2018-03-22 20:00] VITALS: BP 128/74
--- NOTE | 2018-03-22 21:09 | NUR ---
HS MEDICATIONS GIVEN. WILL CONTINUE TO MONITOR FOR NEEDS.
[2018-03-23 00:41] VITALS: BP 133/75
[2018-03-23 05:25] VITALS: BP 149/82
--- NOTE | 2018-03-23 08:00 | NUR ---
ASSESSMENT PER FLOW SHEET. PT IS WITHOUT DISTRESS. HE IS SLEEPY THIS AM. STATES HE FELT BETTER YESTERDAY.MONITOR FOR NEEDS
[2018-03-23 08:30] VITALS: BP 145/72
--- NOTE | 2018-03-23 10:53 | NUR ---
CALL TO [facility] FOR DR. VEALSQUEZ. FAMILY CONCERN PT WORSE TODAY. PT STATES THROAT IS SORE FROM COUGHING. VS 100.0,99,36, 123/70. 89 % ON ROOM AIR. RESP AT BEDSIDE PLACED ON 2 LITERS PER NASAL CANULA.
[2018-03-23 12:19] LABS: BASOPHILS 0.2 % (0-2); EOSINOPHILS 0.1 % (0-7); HEMATOCRIT 40.8 % (42.0-54.0); HEMOGLOBIN 14.1 g/dL (13.5-17.5); IMMATURE GRANULOCYTES 2.8 % (0-5); LYMPHOCYTES 10.8 % (15-50); MCH 31.7 pg (26.0-34.0); MCHC 34.6 g/dL (31.0-37.0); MCV 91.7 fL (80.0-100.0); MEAN PLATELET VOLUME 8.8 fL (7.4-10.4); MONOCYTES 4.4 % (2-11); NEUTROPHILS 81.7 % (40-80); PLATELET COUNT 190 10x3/uL (130-400); RBC 4.45 10x6/uL (4.20-6.10); RDW 12.1 % (11.5-14.5); WBC 19.6 10x3/uL (4.8-10.8)
[2018-03-23 12:30] VITALS: BP 152/66
--- NOTE | 2018-03-23 15:34 | NUR ---
SPOKE WITH [facility] ABOUT LACTIC ACID BEING 2.9,ORDERS RECIEVED AND INITIATED. RESULT FROM CTA NOT AVAILABLE AT THIS TIME
[2018-03-23 18:07] LABS: FUNGAL - ASP FLAVUS Negative (Neg:<1:1); FUNGAL - ASP NIGER Negative (Neg:<1:1); FUNGAL - ASPER FUMIGATUS Negative (Neg:<1:1)
--- NOTE | 2018-03-23 19:00 | NUR ---
REPORT RECEIVED AND CARE OF PT ASSUMED. PT SITTING UP IN CHAIR AT THIS TIME. WILL MONITOR FOR NEEDS.
[2018-03-23 20:00] VITALS: BP 131/62
--- NOTE | 2018-03-23 20:20 | NUR ---
HS MEDICATIONS GIVEN. WILL CONTINUE TO MONITOR FOR NEEDS.
[2018-03-24] VITALS: BP 130/58
[2018-03-24 03:00] VITALS: BP 158/95
[2018-03-24 05:51] LABS: HEMATOCRIT 38.6 % (42.0-54.0); HEMOGLOBIN 12.9 g/dL (13.5-17.5); MCH 31.1 pg (26.0-34.0); MCHC 33.4 g/dL (31.0-37.0); MEAN PLATELET VOLUME 8.9 fL (7.4-10.4); PLATELET COUNT 177 10x3/uL (130-400); RBC 4.15 10x6/uL (4.20-6.10); RDW 12.3 % (11.5-14.5)
[2018-03-24 05:53] LABS: WBC 12.2 10x3/uL (4.8-10.8)
[2018-03-24 06:04] LABS: ALBUMIN 2.7 g/dL (3.4-5.0); ALKALINE PHOSPHATASE 60 U/L (46-116); ALT (SGPT) 54 U/L (10-68); BILIRUBIN - TOTAL 0.53 mg/dL (0.2-1.3); CALC OSMOLALITY 284 mosm/kg (275-300); CALCIUM 7.9 mg/dL (8.5-10.1); CARBON DIOXIDE 29.3 mmol/L (21.0-32.0); CHLORIDE - SERUM 103 mmol/L (98-107); CREATININE - SERUM 0.9 mg/dL (0.6-1.3); GLUCOSE 203 mg/dL (74-106); MAGNESIUM - SERUM 2.5 mg/dL (1.8-2.4); PHOSPHOROUS 3.3 mg/dL (2.5-4.9); PROTEIN - SERUM 6.2 g/dL (6.4-8.2); SODIUM 137 mmol/L (136-145); UREA NITROGEN 27 mg/dL (7-18); eGFR NON AFRICAN AMERICAN 87 mL/min (90-120)
--- NOTE | 2018-03-24 07:58 | NUR ---
AWAKE AND ALERT. ORIENTED X3. NO C/O AT THIS TIME. LUNGS ARE CLEAR BUT DIMINISHED IN LOWER LOBES. OCCASSIONAL PRODUCTIVE COUGH NOTED. SKIN IS INTACT WITHOUT REDNESS. IV TO LEFT HAND IS PATENT WITHOUT REDNESS AT INSERTION SITE. DENIES NEEDS.
[2018-03-24 08:06] LABS: LYMPHOCYTES 11 % (15-50); MONOCYTES 2 % (2-11); NEUTROPHILS 87 % (40-80); PLATELET ESTIMATE DECREASED
[2018-03-24 08:56] VITALS: BP 133/60
--- NOTE | 2018-03-24 10:00 | NUR ---
ATE MOST OF BREAKFAST. DENIES NEEDS.
--- NOTE | 2018-03-24 14:06 | MORECARE ---
CASE MANAGEMENT DISCHARGE SUMMARY PATIENT: RIO GUZMAN UNIT: [id number] ADM DATE: 03/17/18 AGE: 77 : 40 SEX: M ROOM/BED: D.2218 AUTHOR: KAITLYNN GILES PHYSICIAN: REFERRING PHYSICIAN: RENA VELASQUEZ MD DATE OF SERVICE: 03/24/18 Discharge Plan Patient Name: RIO GUZMAN Facility: [facility]:[place] : 1940 Planned Disposition: Home Anticipated Discharge Date: 03/21/18 Discharge Date: Expected LOS: 4 Initial Reviewer: [email or web address] Initial Review Date: 03/19/2018 Generated: 03/24/18 3:05 pm Comments DCP- Discharge Planning Updated by [email or web address]: Tabitha Taylor on 03/24/18 1:[address] LATE ENTRY 03/23/18 1000 CM VISITED WITH THE PATIENT AT THE BEDSIDE. HE WAS SHORT OF BREATH AND WEAK. GAVE CM PERMISSION TO SPEAK WITH THE FAMILY. CM EXPLAINED THE PATIENT MAY REQUIRE OXYGEN AT DISCHARGE. HIS O2 SAT AT REST ON ROOM AIR WAS 87%, WHEN OXYGEN REAPPLIED W/ 2.5 L VIA N/C THE O2 SAT INCREASED TO 92%. PATIENT DOES NOT HAVE NEBULIZER AT HOME. CM HAD SPOKEN WITH DR VIZCAINO. HE FEELS THE PATIENT WILL NEED A NEBULIZER AT DISCHARGE AND POSSIBLY OXYGEN. THE FAMILY HAS NO PREFEREED PROVIDER. JUST WANT TO MAKE SURE IT IS COVERED BY INSURER. CM TO FOLLOW. DCP- Discharge Planning Updated by [email or web address]: Alee Nunez on 03/19/18 4:[address] Patient Name: RIO GUZMAN Admission Status: ER Accout number: [id number] Admission Date: 03-17-2018 : 1940 Admission Diagnosis: Attending: RENA VELASQUEZ Current LOS: 2 Anticipated DC Date: 03-21-2018 Planned Disposition: Home Primary Insurance: MEDICARE A & B Discharge Planning Comments: CM MET WITH PATIENT AND FAMILY REGARDING D/C NEEDS AND PLANS. PATIENTS DAUGHTER (RIYA) SPOKE WITH CM. PATIENT LIVES WITH HIS AND WILL RETURN THERE AT DISCHARGE. PATIENTS DAUGHTER STATED SHE WILL DRIVE PATIENT HOME. THERE ARE 7 STEPS TO ENTER HOME AND NO STAIRS ONCE INSIDE. PATIENT IS INDEPENDENT WITH HIS CARE AND HAS NO DME. PATIENTS PCP IS DR. VELASQUEZ AND USES [facility] [address]. PATIENT DOES NOT WANT HOME HEALTH. CM WILL CONTINUE TO FOLLOW PATIENT WITH D/C NEEDS AND PLANS. [facility]CP [facility] [address] RIYA (DAUGHTER) [phone] Chief Building Inspector: Alee Nunez DCPIA - Discharge Planning Initial Assessment Updated by [email or web address]: Alee Nunez on 03/19/18 5:52 pm * Is the patient Alert and Oriented? Yes * How many steps to enter\exit or inside your home? * PCP DR. VELASQUEZ * Pharmacy [facility] [address] * Preadmission Environment Home with Family * ADLs Independent * Equipment None * List name and contact numbers for known caregivers / representatives who currently or will assist patient after discharge: RIYA (DAUGHTER) [phone] * Verbal permission to speak to the caregivers and representatives has been obtained from the patient. Yes * Community resources currently utilized None * Additional services required to return to the preadmission environment? Yes * Can the patient safely return to the preadmission environment? Yes * Has this patient been hospitalized within the prior 30 days at any hospital? No Last DP export: 03/19/18 5:03 p Patient Name: RIO GUZMAN Page [id number] at 1406 All edits/amendments must be made on the electronic document DICTATION DATE: 03/24/181404 FACILITY OPERATIONS MANAGER: VITOR 03/24/18 140 RPT#: [id number] DC DATE: STATUS: ADM IN [facility] [address] [place] [address] END OF REPORT
[2018-03-24 14:31] VITALS: BP 125/80
[2018-03-24 17:52] VITALS: BP 146/65
--- NOTE | 2018-03-24 19:00 | NUR ---
REPORT RECEIVED AND CARE OF PT ASSUMED. PT LYING IN HIGH VELEZ'S POSITION WATCHING TV. IV IN LEFT HAND PATENT WITH MERREM INFUSING AT THIS TIME. O2 IN USE VIA NC AT 2L. WILL MONITOR FOR NEEDS.
--- NOTE | 2018-03-24 19:19 | NUR ---
ATE ALL OF SUPPER. NO CHANGES NOTED DENIES NEEDS.
--- NOTE | 2018-03-24 19:56 | NUR ---
HS MEDICATIONS GIVEN. WILL CONTINUE TO MONITOR FOR NEEDS.
[2018-03-24 20:00] VITALS: BP 131/71
--- NOTE | 2018-03-24 20:20 | NUR ---
PT SHOWERED AND ALL LINENS AND GOWN CHANGED. WILL CONTINUE TO MONITOR FOR NEEDS.
[2018-03-25] VITALS: BP 151/84
[2018-03-25 00:02] VITALS: BP 133/78
--- NOTE | 2018-03-25 07:15 | NUR ---
MORNING ASSESSMNET COMPLETE. SEE ASSESSMENT FLOWSHEET FOR FURTHER DETAILS. PT LYIGN IN BED AAO X3 TO PERSON, PLACE, AND TIME. GOING FOR UGI WITH SMALL BOWEL FOLLOW THROUGH TODAY. R FA PIV- C/D/I; PATNENT. S1 AND S2 HEARD AT AORTIC, PULMONIC, ERBS, TRICUSPID, AND MITRAL SITES- REG RHYTHM. BILAT RADIAL AND PEDAL PULSES PALP AND STRONG. LUNG SOUNDS CLEAR IN ALL LUNG BARNES- SATS WITHIN NORMAL RANGE ON RA. BOWEL SOUNDS ACTIVE X4. DENIES NEEDS AT THIS TIME. CL IN REACH
[2018-03-25 09:18] VITALS: BP 154/78
--- NOTE | 2018-03-25 09:35 | NUR ---
PROJECTION CAMERA OPERATOR COMPLETE. PT LYING IN BED NO SIGNS OF DISTRESS NOTED. DENIES NEEDS
--- NOTE | 2018-03-25 10:11 | NUR ---
PT LYING IN BED RECEIVED CALL FROM CONTACT ASSEMBLER THAT PT IS TO BE PLACED IN DROPLET ISO FOR TB PERCAUTIONS, ADVISED PT OF ISOLATION STATUS, PUT UP NECESSARY PRECAUTION SIGNS CONTINUE WITH PLAN OF CARE
--- NOTE | 2018-03-25 11:00 | NUR ---
NUTRITION MONITORING AND EVAL PT MOVING TO ROOM 2201 FOR ISOLATION PRECAUTIONS. REG DIET WITH 100% INTAKE MEALS. REMAINS AT LOW NUTRITIONAL RISKS. RD FOLLOWING
[2018-03-25 12:17] VITALS: BP 136/71
[2018-03-25 16:29] VITALS: BP 139/77
[2018-03-25 17:35] LABS: BASOPHILS 0.2 % (0-2); EOSINOPHILS 0 % (0-7); HEMATOCRIT 36.3 % (42.0-54.0); HEMOGLOBIN 12.3 g/dL (13.5-17.5); IMMATURE GRANULOCYTES 3.9 % (0-5); LYMPHOCYTES 14.1 % (15-50); MCH 31.1 pg (26.0-34.0); MCHC 33.9 g/dL (31.0-37.0); MCV 91.7 fL (80.0-100.0); MONOCYTES 4.2 % (2-11); NEUTROPHILS 77.6 % (40-80); PLATELET COUNT 173 10x3/uL (130-400); RBC 3.96 10x6/uL (4.20-6.10); RDW 12.2 % (11.5-14.5)
[2018-03-25 17:43] LABS: WBC 16.8 10x3/uL (4.8-10.8)
[2018-03-25 17:45] LABS: APTT 21.6 SECONDS (22.8-39.4); INR 1.02 (0.85-1.17); PROTIME 12.9 SECONDS (11.6-15.0)
--- NOTE | 2018-03-25 19:15 | NUR ---
Patient resting in bed alert and orented able to voice needs and wants to staff. assement completed. no distress noted or stated at this time. call light in reach
[2018-03-25 20:00] VITALS: BP 135/72
[2018-03-26 04:00] VITALS: BP 162/99
[2018-03-26 05:04] LABS: BASOPHILS 0.2 % (0-2); EOSINOPHILS 0 % (0-7); HEMATOCRIT 36.3 % (42.0-54.0); HEMOGLOBIN 12.2 g/dL (13.5-17.5); IMMATURE GRANULOCYTES 2.8 % (0-5); MCH 30.9 pg (26.0-34.0); MCHC 33.6 g/dL (31.0-37.0); MCV 91.9 fL (80.0-100.0); MEAN PLATELET VOLUME 9.1 fL (7.4-10.4); MONOCYTES 4.1 % (2-11); NEUTROPHILS 77.9 % (40-80); PLATELET COUNT 182 10x3/uL (130-400); RBC 3.95 10x6/uL (4.20-6.10); RDW 12.2 % (11.5-14.5); WBC 13.4 10x3/uL (4.8-10.8)
[2018-03-26 05:22] LABS: CALC OSMOLALITY 285 mosm/kg (275-300); CALCIUM 8.1 mg/dL (8.5-10.1); CARBON DIOXIDE 27.5 mmol/L (21.0-32.0); CHLORIDE - SERUM 104 mmol/L (98-107); CREATININE - SERUM 0.8 mg/dL (0.6-1.3); GLUCOSE 162 mg/dL (74-106); POTASSIUM - SERUM 4.7 mmol/L (3.5-5.1); SODIUM 139 mmol/L (136-145); UREA NITROGEN 23 mg/dL (7-18); eGFR NON AFRICAN AMERICAN > 90 mL/min (90-120)
--- NOTE | 2018-03-26 07:15 | NUR ---
MORNING ASSESSMENT COMPLETE. SEE ASSESSMENT FLOWSHEET FOR FURTHER DETAILS. PT LYING IN BED AAO X3 TO PERSON, PLACE, AND TIME. PT GOING FOR BRONCHOSCOPY WITH FLUROSCOPY TODAY. LUNG SOUNDS WHEEZING IN RUL, RML, AND CRISTINA. DIMINISHED IN SOUND IN RLL AND LLL. SAT WITHIN NORMAL RANGE ON 2L O2 PER NC. L HAND PIV C/I; PATENT. ON TELEMETRY- RUNNING 62 SR. DENIES NEEDS AT THIS TIME. CL IN REACH.
[2018-03-26 08:45] VITALS: BP 139/76
[2018-03-26 16:16] VITALS: BP 142/73
[2018-03-26 20:00] VITALS: BP 128/74
[2018-03-26 22:54] VITALS: BP 128/74
[2018-03-27] VITALS (7 sets, daily range): BP systolic 127–147; BP diastolic 67–82
--- NOTE | 2018-03-27 07:45 | NUR ---
PATIENT CALL STAFF TO ROOM STATED HE HAD NOT BEEN GIVEN A TRAY FOR DINNER, CHECK OF ORDRES HAD ORDERS FOR LIQUID DIET TO ADVANC TOLARATED. HAD CLEAR LIQUID DIET LAST NIGHT WITH NO ADVERS REACTION. PUN IN A FULL LIQUID DIET FOR BREAKFAST,
[2018-03-27 13:16] LABS: FUNGUS STAIN Final report (())
[2018-03-27 19:09] LABS: AFB SPECIMEN PROCESSING Concentration (())
--- NOTE | 2018-03-27 20:00 | NUR ---
ALERT AND ORIENTIATED RESTING IN BED SEE SHIFT ASSESSMENT BED LOW CALL LIGHT IN REACH
--- NOTE | 2018-03-27 23:30 | NUR ---
IV RESITED TO LEFT FORARM 20 G X 1 ATTEMPT DUE TO LEAKING AT SITE
[2018-03-28 00:59] VITALS: BP 120/80
[2018-03-28 08:00] VITALS: BP 137/70
[2018-03-28 08:49] VITALS: BP 131/70
--- NOTE | 2018-03-28 09:24 | NUR ---
banking teacher note-standing at bedside. no complaints at present. 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 call light in reach
[2018-03-28 10:24] LABS: CRYPTOCOCCUS AG - SERUM Negative (Negative)
[2018-03-28 14:18] LABS: HISTOPLASMA GAL MANNAN AG SER <0.5 (<0.5 ng/mL)
[2018-03-28 15:58] VITALS: BP 141/71
[2018-03-28 18:35] VITALS: BP 129/72
--- NOTE | 2018-03-28 20:00 | NUR ---
ALERT RESTING IN BED NO APPARENT DISTRESS, IV INFUSING WITHOUT DIFFICULTY, RESP UNLABORED O2 IN USE CALL LIGHT IN REACH. NO NEEDS VOICED AT THIS TIME
[2018-03-29 07:51] LABS: BASOPHILS 0.1 % (0-2); CALC OSMOLALITY 283 mosm/kg (275-300); CARBON DIOXIDE 29.6 mmol/L (21.0-32.0); CHLORIDE - SERUM 102 mmol/L (98-107); CREATININE - SERUM 0.8 mg/dL (0.6-1.3); EOSINOPHILS 0 % (0-7); GLUCOSE 129 mg/dL (74-106); HEMATOCRIT 40.5 % (42.0-54.0); HEMOGLOBIN 13.4 g/dL (13.5-17.5); IMMATURE GRANULOCYTES 1.6 % (0-5); LYMPHOCYTES 19.4 % (15-50); MCHC 33.1 g/dL (31.0-37.0); MCV 93.8 fL (80.0-100.0); MEAN PLATELET VOLUME 8.9 fL (7.4-10.4); MONOCYTES 4.1 % (2-11); NEUTROPHILS 74.8 % (40-80); PLATELET COUNT 168 10x3/uL (130-400); POTASSIUM - SERUM 4.7 mmol/L (3.5-5.1); RBC 4.32 10x6/uL (4.20-6.10); RDW 12.4 % (11.5-14.5); SODIUM 138 mmol/L (136-145); UREA NITROGEN 28 mg/dL (7-18); eGFR NON AFRICAN AMERICAN > 90 mL/min (90-120)
[2018-03-29 08:37] VITALS: BP 125/67
[2018-03-29 12:27] VITALS: BP 109/83
[2018-03-29 12:44] VITALS: Ht 177.8 cm; Wt 88.5 kg
--- NOTE | 2018-03-29 15:31 | MORECARE ---
CASE MANAGEMENT DISCHARGE SUMMARY PATIENT: RIO GUZMAN UNIT: [id number] ADM DATE: 03/17/18 AGE: 77 : 40 SEX: M ROOM/BED: D.2201 AUTHOR: KAITLYNN GILES PHYSICIAN: REFERRING PHYSICIAN: RENA VELASQUEZ MD DATE OF SERVICE: 03/29/18 Discharge Plan Patient Name: RIO GUZMAN Facility: [facility]:[place] : 1940 Planned Disposition: Home Anticipated Discharge Date: 03/21/18 Discharge Date: Expected LOS: 4 Initial Reviewer: [email or web address] Initial Review Date: 03/19/2018 Generated: 03/29/18 4:31 pm Comments DCP- Discharge Planning Updated by [email or web address]: Tabitha Taylor on 03/24/18 1:[address] LATE ENTRY 03/23/18 1000 CM VISITED WITH THE PATIENT AT THE BEDSIDE. HE WAS SHORT OF BREATH AND WEAK. GAVE CM PERMISSION TO SPEAK WITH THE FAMILY. CM EXPLAINED THE PATIENT MAY REQUIRE OXYGEN AT DISCHARGE. HIS O2 SAT AT REST ON ROOM AIR WAS 87%, WHEN OXYGEN REAPPLIED W/ 2.5 L VIA N/C THE O2 SAT INCREASED TO 92%. PATIENT DOES NOT HAVE NEBULIZER AT HOME. CM HAD SPOKEN WITH DR VIZCAINO. HE FEELS THE PATIENT WILL NEED A NEBULIZER AT DISCHARGE AND POSSIBLY OXYGEN. THE FAMILY HAS NO PREFEREED PROVIDER. JUST WANT TO MAKE SURE IT IS COVERED BY INSURER. CM TO FOLLOW. DCP- Discharge Planning Updated by [email or web address]: Alee Nunez on 03/19/18 4:[address] Patient Name: RIO GUZMAN Admission Status: ER Accout number: [id number] Admission Date: 03-17-2018 : 1940 Admission Diagnosis: Attending: RENA VELASQUEZ Current LOS: 2 Anticipated DC Date: 03-21-2018 Planned Disposition: Home Primary Insurance: MEDICARE A & B Discharge Planning Comments: CM MET WITH PATIENT AND FAMILY REGARDING D/C NEEDS AND PLANS. PATIENTS DAUGHTER (RIYA) SPOKE WITH CM. PATIENT LIVES WITH HIS AND WILL RETURN THERE AT DISCHARGE. PATIENTS DAUGHTER STATED SHE WILL DRIVE PATIENT HOME. THERE ARE 7 STEPS TO ENTER HOME AND NO STAIRS ONCE INSIDE. PATIENT IS INDEPENDENT WITH HIS CARE AND HAS NO DME. PATIENTS PCP IS DR. VELASQUEZ AND USES [facility] [address]. PATIENT DOES NOT WANT HOME HEALTH. CM WILL CONTINUE TO FOLLOW PATIENT WITH D/C NEEDS AND PLANS. [facility]CP [facility] [address] RIYA (DAUGHTER) [phone] Land Surveyor Manager: Alee Nunez DCPIA - Discharge Planning Initial Assessment Updated by [email or web address]: Alee Nunez on 03/19/18 5:52 pm * Is the patient Alert and Oriented? Yes * How many steps to enter\exit or inside your home? * PCP DR. VELASQUEZ * Pharmacy [facility] [address] * Preadmission Environment Home with Family * ADLs Independent * Equipment None * List name and contact numbers for known caregivers / representatives who currently or will assist patient after discharge: RIYA (DAUGHTER) [phone] * Verbal permission to speak to the caregivers and representatives has been obtained from the patient. Yes * Community resources currently utilized None * Additional services required to return to the preadmission environment? Yes * Can the patient safely return to the preadmission environment? Yes * Has this patient been hospitalized within the prior 30 days at any hospital? No Last DP export: 03/24/18 1:06 p Patient Name: RIO GUZMAN Page 55511 at 1531 All edits/amendments must be made on the electronic document DICTATION DATE: 03/29/18 153 CAFE WORKER: VITOR 03/29/18 153 RPT#: [id number] DC DATE: STATUS: ADM IN [facility] [address] [place] [address] END OF REPORT
[2018-03-29 20:00] VITALS: BP 119/75
[2018-03-30] VITALS: BP 136/80
[2018-03-30 04:00] VITALS: BP 128/73
--- NOTE | 2018-03-30 05:51 | NUR ---
PT IN BED IN LOW FOWLERS POSITION RESTING QUIETLY WITH EYES CLOSED. ALERT AND ORIENTED X4. VITAL SIGNS STABLE AND AFEBRILE. NO VISUAL CUES OF DISTRESS NOTED. DENIES ANY OTHER NEEDS AT THIS TIME. BED LOW, SIDE RAILS UP X2. CALL LIGHT IN REACH WILL CONTINUE TO MONITOR.
--- NOTE | 2018-03-30 07:15 | NUR ---
MORNING ASSESSMENT COMPLETE. SEE ASSESSMENT FLOWSHEET FOR FURTHER DETILS. PT LYING IN BED AAOX4 TO PERSON, PLACE, TIME, AND SITUATION. S1 AND S2 HEARD AT AORTIC, PULMONIC, ERBS, TRICUSPID, AND MITRAL SITES- REG RHYTHM. BILAT RADIAL AND PEDAL PULSES PALP AND STRONG. LUNG SOUNDS EXPIRATORY WHEEZING IN ALL LUNG BARNES. BOWEL SOUNDS ACTIVE X4. DENIES NEEDS AT THIS TIME. CL IN REACH
[2018-03-30 08:05] VITALS: BP 134/64
[2018-03-30 11:49] VITALS: BP 111/66
[2018-03-30 16:00] VITALS: BP 125/75
--- NOTE | 2018-03-30 20:21 | NUR ---
PATIENT RESTING IN BED WITH NO S/S OF DISTRESS. PATIENT DENIES NEEDS AT THIS TIME. BED IN LOWEST POSITION AND CALL LIGHT WITHIN REACH. ENCOURAGED THE PATIENT TO CALL IF HE HAS NEEDS. WILL CONTINUE TO MONITOR.
[2018-03-30 20:41] VITALS: BP 135/80
[2018-03-31 00:40] VITALS: BP 139/84
--- NOTE | 2018-03-31 01:51 | NUR ---
PATIENT RESTING IN BED WITH EYES CLOSED AND NO S/S OF DISTRESS. WILL CONTINUE TO MONITOR.
[2018-03-31 05:01] VITALS: BP 135/79
--- NOTE | 2018-03-31 07:00 | NUR ---
MORNING ASSESSMENT COMPLETE. SEE ASSESSMENT FLOWSHEET FOR FURTHER DETAILS. PT LYING IN BED AAO X4 TO PERSON, PLACE, TIME AND STITUATION. R FA PIV SL- C/D/I; PATENT. LUNG SOUNDS DIMINISHED IN SOUND IN RML, RLL, AND LLL. RUL AND CRISTINA CTA. SATS WITHIN NORAML RANGE ON RA. SKIN LESIONS NOTED AROUND MOUTH. DENIES NEEDS AT THIS TIME. CL IN REACH.
[2018-03-31 08:46] VITALS: BP 138/83
[2018-03-31 13:10] VITALS: BP 138/75
[2018-03-31 16:00] VITALS: BP 143/47
[2018-03-31 20:00] VITALS: BP 124/72
[2018-04-01] VITALS (10 sets, daily range): BP systolic 108–131; BP diastolic 64–83
[2018-04-01 03:58] LABS: BASOPHILS 0 % (0-2); EOSINOPHILS 0.1 % (0-7); HEMATOCRIT 41.1 % (42.0-54.0); HEMOGLOBIN 13.7 g/dL (13.5-17.5); IMMATURE GRANULOCYTES 0.7 % (0-5); MCH 31.2 pg (26.0-34.0); MCHC 33.3 g/dL (31.0-37.0); MCV 93.6 fL (80.0-100.0); MEAN PLATELET VOLUME 8.7 fL (7.4-10.4); MONOCYTES 6.1 % (2-11); NEUTROPHILS 75.1 % (40-80); PLATELET COUNT 136 10x3/uL (130-400); RBC 4.39 10x6/uL (4.20-6.10); RDW 12.7 % (11.5-14.5); WBC 15.3 10x3/uL (4.8-10.8)
[2018-04-01 04:04] LABS: CALC OSMOLALITY 276 mosm/kg (275-300); CALCIUM 7.8 mg/dL (8.5-10.1); CARBON DIOXIDE 27.2 mmol/L (21.0-32.0); CHLORIDE - SERUM 101 mmol/L (98-107); CREATININE - SERUM 0.8 mg/dL (0.6-1.3); GLUCOSE 110 mg/dL (74-106); SODIUM 136 mmol/L (136-145); UREA NITROGEN 23 mg/dL (7-18); eGFR NON AFRICAN AMERICAN > 90 mL/min (90-120)
[2018-04-01 04:05] LABS: APTT 21.7 SECONDS (22.8-39.4); INR 1.04 (0.85-1.17); PROTIME 13.1 SECONDS (11.6-15.0)
--- NOTE | 2018-04-01 09:23 | NUR ---
PATIENT IN BED WITH EYES CLOSED RESTING QUIETLY. IV INTACT. CALL LIGHTW ITHIN REACH.
--- NOTE | 2018-04-01 19:45 | NUR ---
PT SITTING UP IN BED, NO SIGNS OF DISTRESS. ALERT AND ORIENTED. IV RIGHT FA SL. NO REDNESS AT INSERTION SITE, DRESSING CDI. HR 84 SR PER TELE. PT STATES NO NEEDS OR COMPLAINTS AT THIS TIME. CL IN REACH, WILL CONTINUE TO MONITOR
[2018-04-02 04:00] VITALS: BP 120/68
--- NOTE | 2018-04-02 07:28 | NUR ---
PT ALERT X 4. BREATH SOUNDS CLEAR BILAT, 4L O2 PER NC. SORES AROUND MOUTH. TELEMETRY IN PLACE. IV TO RIGHT HAND, SALINE LOCKED. PT REPORTING PAIN OF 4/10, NO MEDS NEEDED AT THIS TIME. BED LOW, CALL LIGHT IN REACH. NO OTHER NEEDS
[2018-04-02 08:37] VITALS: BP 118/64
--- NOTE | 2018-04-02 10:24 | NUR ---
NUTRITION F/U PT OUT OF ISOLATION. TOLERATING REG DIET WITH 100% INTAKE BREAKFAST. WILL CONTINUE TO PROVIDE DIET, HONOR FOOD PREFERENCES. RD FOLLOWING
[2018-04-02 11:58] VITALS: BP 120/68
--- NOTE | 2018-04-02 14:49 | NUR ---
PT REPORTED COUGHING UP SOME BLOODY SPUTUM ONE TIME. KLEENEX WAS A SMALL AMOUNT
[2018-04-02 17:25] VITALS: BP 122/63
--- NOTE | 2018-04-02 19:45 | NUR ---
PT SITTING UP IN BED, NO SIGNS OF DISTRESS. ALERT AND ORIENTED. STATES NO PAIN OR NEEDS AT THIS TIME. IV RIGHT FA SL. NO REDNESS AT INSERTION SITE, DRESSING CDI. CL IN REACH, WILL CONTINUE TO MONITOR
[2018-04-02 20:00] VITALS: BP 114/69
[2018-04-03] VITALS: BP 124/74
[2018-04-03 04:00] VITALS: BP 135/82
--- NOTE | 2018-04-03 07:15 | NUR ---
MORNING ASSESSMENT COMPLETE. SEE ASSESSMENT FLOWSHEET FOR FURTHER DETYAILS. PT LYING IN BED AAO X4 TO PERSON, PLACE, TIME AND SITUATION. DENIES PAIN. LUNGS CTA. R FA PIV SL C/D/I; PATENT. DENIES NEEDS AT THIS TIME. CL IN REACH.
[2018-04-03 08:30] VITALS: BP 127/70
[2018-04-03] MEDS ORDERED: VALTREX500 MG PO (08:33)
[2018-04-03] MEDS ORDERED: PREDNISONE20 MG PO (08:35)
[2018-04-03] MEDS ORDERED: ADVAIR HFA 230-12 GM INH (08:36)
[2018-04-03] MEDS ORDERED: COMBIVENT RESPIM4 GM INH (08:38)
--- NOTE | 2018-04-03 10:16 | MORECARE ---
CASE MANAGEMENT DISCHARGE SUMMARY PATIENT: RIO GUZMAN UNIT: [id number] ADM DATE: 03/17/18 AGE: 77 : 40 SEX: M ROOM/BED: D.2201 AUTHOR: KAITLYNN GILES PHYSICIAN: REFERRING PHYSICIAN: RENA VELASQUEZ MD DATE OF SERVICE: 04/03/18 Discharge Plan Patient Name: RIO GUZMAN Facility: [facility]:[place] : 1940 Planned Disposition: Home Anticipated Discharge Date: 03/21/18 Discharge Date: Expected LOS: 4 Initial Reviewer: [id number] Initial Review Date: 03/19/2018 Generated: 04/03/18 11:16 am Comments DCP- Discharge Planning Updated by [email or web address]: Tabitha Taylor on 03/24/18 1:[address] LATE ENTRY 03/23/18 1000 CM VISITED WITH THE PATIENT AT THE BEDSIDE. HE WAS SHORT OF BREATH AND WEAK. GAVE CM PERMISSION TO SPEAK WITH THE FAMILY. CM EXPLAINED THE PATIENT MAY REQUIRE OXYGEN AT DISCHARGE. HIS O2 SAT AT REST ON ROOM AIR WAS 87%, WHEN OXYGEN REAPPLIED W/ 2.5 L VIA N/C THE O2 SAT INCREASED TO 92%. PATIENT DOES NOT HAVE NEBULIZER AT HOME. CM HAD SPOKEN WITH DR VIZCAINO. HE FEELS THE PATIENT WILL NEED A NEBULIZER AT DISCHARGE AND POSSIBLY OXYGEN. THE FAMILY HAS NO PREFEREED PROVIDER. JUST WANT TO MAKE SURE IT IS COVERED BY INSURER. CM TO FOLLOW. DCP- Discharge Planning Updated by [id number]: Alee Nunez on 03/19/18 4:[address] Patient Name: RIO GUZMAN Admission Status: ER Accout number: [id number] Admission Date: 03-17-2018 : 1940 Admission Diagnosis: Attending: RENA VELASQUEZ Current LOS: 2 Anticipated DC Date: 03-21-2018 Planned Disposition: Home Primary Insurance: MEDICARE A & B Discharge Planning Comments: CM MET WITH PATIENT AND FAMILY REGARDING D/C NEEDS AND PLANS. PATIENTS DAUGHTER (RIYA) SPOKE WITH CM. PATIENT LIVES WITH HIS AND WILL RETURN THERE AT DISCHARGE. PATIENTS DAUGHTER STATED SHE WILL DRIVE PATIENT HOME. THERE ARE 7 STEPS TO ENTER HOME AND NO STAIRS ONCE INSIDE. PATIENT IS INDEPENDENT WITH HIS CARE AND HAS NO DME. PATIENTS PCP IS DR. VELASQUEZ AND USES [facility] [address]. PATIENT DOES NOT WANT HOME HEALTH. CM WILL CONTINUE TO FOLLOW PATIENT WITH D/C NEEDS AND PLANS. [facility] [address] RIYA (DAUGHTER) [phone] Clothing Examiner: Alee Nunez DCPIA - Discharge Planning Initial Assessment Updated by [id number]: Alee Nunez on 03/19/18 5:52 pm * Is the patient Alert and Oriented? Yes * How many steps to enter\exit or inside your home? * PCP DR. VELASQUEZ * Pharmacy [facility] [address] * Preadmission Environment Home with Family * ADLs Independent * Equipment None * List name and contact numbers for known caregivers / representatives who currently or will assist patient after discharge: RIYA (DAUGHTER) [phone] * Verbal permission to speak to the caregivers and representatives has been obtained from the patient. Yes * Community resources currently utilized None * Additional services required to return to the preadmission environment? Yes * Can the patient safely return to the preadmission environment? Yes * Has this patient been hospitalized within the prior 30 days at any hospital? No External Providers [facility] Next Contact Date: Service Request Date: Service Type: Resolution: Reviewer: Comments: Last DP export: 03/29/18 2:31 p Patient Name: RIO GUZMAN Page [phone] at 1016 All edits/amendments must be made on the electronic document DICTATION DATE: 04/03/18 1015 INSPECTOR AND UNLOADER: VITOR 04/03/18 1015 RPT#: [id number] DC DATE: STATUS: ADM IN [facility] [address] [place] [address] END OF REPORT
[2018-04-03] MEDS ORDERED: IPRAT-ALBUT 0.5-3 ML UPD (10:29)
[2018-04-03] MEDS ORDERED: PULMICORT0.5 MG/21 INH (10:30)
--- NOTE | 2018-04-03 10:36 | MORECARE ---
CASE MANAGEMENT DISCHARGE SUMMARY PATIENT: RIO GUZMAN UNIT: [id number] ADM DATE: 03/17/18 AGE: 77 : 40 SEX: M ROOM/BED: D.2201 AUTHOR: KAITLYNN GILES PHYSICIAN: REFERRING PHYSICIAN: RENA VELASQUEZ MD DATE OF SERVICE: 04/03/18 Discharge Plan Patient Name: RIO GUZMAN Facility: [facility]:[place] : 1940 Planned Disposition: Home Anticipated Discharge Date: 03/21/18 Discharge Date: Expected LOS: 4 Initial Reviewer: [id number] Initial Review Date: 03/19/2018 Generated: 04/03/18 11:35 am Comments DCP- Discharge Planning Updated by [email or web address]: Tabitha Taylor on 03/24/18 1:[address] LATE ENTRY 03/23/18 1000 CM VISITED WITH THE PATIENT AT THE BEDSIDE. HE WAS SHORT OF BREATH AND WEAK. GAVE CM PERMISSION TO SPEAK WITH THE FAMILY. CM EXPLAINED THE PATIENT MAY REQUIRE OXYGEN AT DISCHARGE. HIS O2 SAT AT REST ON ROOM AIR WAS 87%, WHEN OXYGEN REAPPLIED W/ 2.5 L VIA N/C THE O2 SAT INCREASED TO 92%. PATIENT DOES NOT HAVE NEBULIZER AT HOME. CM HAD SPOKEN WITH DR VIZCAINO. HE FEELS THE PATIENT WILL NEED A NEBULIZER AT DISCHARGE AND POSSIBLY OXYGEN. THE FAMILY HAS NO PREFEREED PROVIDER. JUST WANT TO MAKE SURE IT IS COVERED BY INSURER. CM TO FOLLOW. DCP- Discharge Planning Updated by [email or web address]: Alee Nunez on 03/19/18 4:[address] Patient Name: RIO GUZMAN Admission Status: ER Accout number: [id number] Admission Date: 03-17-2018 : 1940 Admission Diagnosis: Attending: RENA VELASQUEZ Current LOS: 2 Anticipated DC Date: 03-21-2018 Planned Disposition: Home Primary Insurance: MEDICARE A & B Discharge Planning Comments: CM MET WITH PATIENT AND FAMILY REGARDING D/C NEEDS AND PLANS. PATIENTS DAUGHTER (RIYA) SPOKE WITH CM. PATIENT LIVES WITH HIS AND WILL RETURN THERE AT DISCHARGE. PATIENTS DAUGHTER STATED SHE WILL DRIVE PATIENT HOME. THERE ARE 7 STEPS TO ENTER HOME AND NO STAIRS ONCE INSIDE. PATIENT IS INDEPENDENT WITH HIS CARE AND HAS NO DME. PATIENTS PCP IS DR. VELASQUEZ AND USES [id number] [address]. PATIENT DOES NOT WANT HOME HEALTH. CM WILL CONTINUE TO FOLLOW PATIENT WITH D/C NEEDS AND PLANS. [facility] [address] RIYA (DAUGHTER) [phone] Telegraph Service Rater: Alee Nunez DCPIA - Discharge Planning Initial Assessment Updated by [email or web address]: Alee Nunez on 03/19/18 5:52 pm * Is the patient Alert and Oriented? Yes * How many steps to enter\exit or inside your home? * PCP DR. VELASQUEZ * Pharmacy [facility] [address] * Preadmission Environment Home with Family * ADLs Independent * Equipment None * List name and contact numbers for known caregivers / representatives who currently or will assist patient after discharge: RIYA (DAUGHTER) [phone] * Verbal permission to speak to the caregivers and representatives has been obtained from the patient. Yes * Community resources currently utilized None * Additional services required to return to the preadmission environment? Yes * Can the patient safely return to the preadmission environment? Yes * Has this patient been hospitalized within the prior 30 days at any hospital? No External Providers External Provider: [facility] Next Contact Date: Service Request Date: Service Type: Resolution: Reviewer: Comments: Coverage Notice Reviewer: [id number] Marzena Hess Notice Issued Date-Time: 04/03/2018 10:00 Notice Type: IM Discharge Notice Notice Delivered To: Patient Relationship to Patient: Cavalry Officer Name: Delivery Method: HAND - Hand Delivered Krysta Days: Prior Verbal Notification: Recipient Understood Notice: Yes Recipient Signature: Yes Med Rec Note Co-signed by Attending: Coverage Notice Comment: Last DP export: 04/03/18 9:16 a Patient Name: RIO GUZMAN Page [id number] at 1036 All edits/amendments must be made on the electronic document DICTATION DATE: 04/03/18 1035 CHIROPRACTIC PHYSICIAN: VITOR 04/03/18 1035 RPT#: [id number] DC DATE: STATUS: ADM IN [facility] [address] [place] [address] END OF REPORT
--- NOTE | 2018-04-03 10:43 | MORECARE ---
CASE MANAGEMENT DISCHARGE SUMMARY PATIENT: RIO GUZMNA UNIT: [id number] ADM DATE: 03/17/18 AGE: 77 : 40 SEX: M ROOM/BED: D.2201 AUTHOR: HCAN,DOC PHYSICIAN: REFERRING PHYSICIAN: RENA VELASQUEZ MD DATE OF SERVICE: 04/03/18 Discharge Plan Patient Name: RIO GUZMAN Facility: [facility]:[place] : 1940 Planned Disposition: Home Anticipated Discharge Date: 03/21/18 Discharge Date: Expected LOS: 4 Initial Reviewer: [id number] Initial Review Date: 03/19/2018 Generated: 04/03/18 11:43 am Comments DCP- Discharge Planning Updated by [email or web address]: Elen Hess on 04/03/18 9:[address] PATIENT WILL BE DISCHARGING HOME TODAY HE WOULD LIKE HOME HEALTH, ISIAH WITH [facility] HE WILL NEED PORTABLE O2 AND NEBULIZER. ORDER SENT TO [facility] SPOKE WITH [facility]. THEY WILL DELIVER PORTABLE O2 TO THE HOSPITAL AND THE NEBULIZER AND HOME O2 TO THE HOUSE TODAY. IMM HAS BEEN GIVEN AND EXPLAINED. CM WILL CONTINUE TO FOLLOW AND ASSIST WITH DC PLANNING NEEDED. I CALLED [facility] AND SPOKE WITH EDVIN DCP- Discharge Planning Updated by [email or web address]: Tabitha Talyor on 03/24/18 1:[address] LATE ENTRY 03/23/18 1000 CM VISITED WITH THE PATIENT AT THE BEDSIDE. HE WAS SHORT OF BREATH AND WEAK. GAVE CM PERMISSION TO SPEAK WITH THE FAMILY. CM EXPLAINED THE PATIENT MAY REQUIRE OXYGEN AT DISCHARGE. HIS O2 SAT AT REST ON ROOM AIR WAS 87%, WHEN OXYGEN REAPPLIED W/ 2.5 L VIA N/C THE O2 SAT INCREASED TO 92%. PATIENT DOES NOT HAVE NEBULIZER AT HOME. CM HAD SPOKEN WITH DR VIZCAINO. HE FEELS THE PATIENT WILL NEED A NEBULIZER AT DISCHARGE AND POSSIBLY OXYGEN. THE FAMILY HAS NO PREFEREED PROVIDER. JUST WANT TO MAKE SURE IT IS COVERED BY INSURER. CM TO FOLLOW. DCP- Discharge Planning Updated by [id number]: Alee Nunez on 03/19/18 4:[address] Patient Name: RIO GUZMAN Admission Status: ER Accout number: [id number] Admission Date: 03-17-2018 : [id number] Admission Diagnosis: Attending: RENA VELASQUEZ Current LOS: 2 Anticipated DC Date: 03-21-2018 Planned Disposition: Home Primary Insurance: MEDICARE A & B Discharge Planning Comments: CM MET WITH PATIENT AND FAMILY REGARDING D/C NEEDS AND PLANS. PATIENTS DAUGHTER (RIYA) SPOKE WITH CM. PATIENT LIVES WITH HIS AND WILL RETURN THERE AT DISCHARGE. PATIENTS DAUGHTER STATED SHE WILL DRIVE PATIENT HOME. THERE ARE 7 STEPS TO ENTER HOME AND NO STAIRS ONCE INSIDE. PATIENT IS INDEPENDENT WITH HIS CARE AND HAS NO DME. PATIENTS PCP IS DR. VELASQUEZ AND USES [facility] [address]. PATIENT DOES NOT WANT HOME HEALTH. CM WILL CONTINUE TO FOLLOW PATIENT WITH D/C NEEDS AND PLANS. [facility]CP [facility] [address] RIYA (DAUGHTER) [phone] Compugraph Operator: Alee Nunez [facility] - Discharge Planning Initial Assessment Updated by [email or web address]: Alee Nunez on 03/19/18 5:52 pm * Is the patient Alert and Oriented? Yes * How many steps to enter\exit or inside your home? * PCP DR. VELASQUEZ * Pharmacy [facility] [address] * Preadmission Environment Home with Family * ADLs Independent * Equipment None * List name and contact numbers for known caregivers / representatives who currently or will assist patient after discharge: RIYA (DAUGHTER) [phone] * Verbal permission to speak to the caregivers and representatives has been obtained from the patient. Yes * Community resources currently utilized None * Additional services required to return to the preadmission environment? Yes * Can the patient safely return to the preadmission environment? Yes * Has this patient been hospitalized within the prior 30 days at any hospital? No Coverage Notice Reviewer: [id number] Marzena Hess Notice Issued Date-Time: 04/03/2018 10:00 Notice Type: IM Discharge Notice Notice Delivered To: Patient Relationship to Patient: Information Technology Analyst Name: Delivery Method: HAND - Hand Delivered Krysta Days: Prior Verbal Notification: Recipient Understood Notice: Yes Recipient Signature: Yes Med Rec Note Co-signed by Attending: Coverage Notice Comment: Last DP export: 04/03/18 9:35 a Patient Name: RIO GUZMAN Page [phone] at 1043 All edits/amendments must be made on the electronic document DICTATION DATE: 04/03/18 1043 HOSTEL MANAGER: VITOR 04/03/18 1043 RPT#: [id number] DC DATE: STATUS: ADM IN [facility] [address] [place] [address] END OF REPORT
--- NOTE | 2018-04-03 12:08 | NUR ---
SPOKE WITH GRIFFIN BROWER AT THE HEALTH DEPT, ASKED FOR A FACESHEET AND THE REPORT OF TB TEST, TO BE FAXED TO HIM AND HE WOULD CALL THE PT, CALLED [facility] IN [facility] AND SHE SAID SHE WOULD GET IT ALL SENT TO HIM.PT GIVEN COPY OF DISK TO TAKE WITH HIM.
--- NOTE | 2018-04-03 12:18 | MORECARE ---
CASE MANAGEMENT DISCHARGE SUMMARY PATIENT: RIO GUZMAN UNIT: [id number] ADM DATE: 03/17/18 AGE: 77 : 40 SEX: M ROOM/BED: D.2201 AUTHOR: CHAN,DOC PHYSICIAN: REFERRING PHYSICIAN: RENA VELASQUEZ MD DATE OF SERVICE: 04/03/18 Discharge Plan Patient Name: RIO GUZMAN Facility: [facility]:[place] : 1940 Planned Disposition: Home Anticipated Discharge Date: 03/21/18 Discharge Date: Expected LOS: 4 Initial Reviewer: [id number] Initial Review Date: 03/19/2018 Generated: 04/03/18 1:18 pm Comments DCP- Discharge Planning Updated by [email or web address]: Elen Hess on 04/03/18 11:[address] PORTABLE O2 DELIVERED TO THE HOSPITAL ROOM DCP- Discharge Planning Updated by [email or web address]: Elen Hess on 04/03/18 9:[address] PATIENT WILL BE DISCHARGING HOME TODAY HE WOULD LIKE HOME HEALTH, [facility]IAH WITH [facility] HE WILL NEED PORTABLE O2 AND NEBULIZER. ORDER SENT TO [facility] SPOKE WITH [facility]. THEY WILL DELIVER PORTABLE O2 TO THE HOSPITAL AND THE NEBULIZER AND HOME O2 TO THE HOUSE TODAY. IMM HAS BEEN GIVEN AND EXPLAINED. CM WILL CONTINUE TO FOLLOW AND ASSIST WITH DC PLANNING NEEDED. I CALLED [facility] AND SPOKE WITH EDVIN DCP- Discharge Planning Updated by [email or web address]: Tabitha Taylor on 03/24/18 1:[address] LATE ENTRY 03/23/18 1000 CM VISITED WITH THE PATIENT AT THE BEDSIDE. HE WAS SHORT OF BREATH AND WEAK. GAVE CM PERMISSION TO SPEAK WITH THE FAMILY. CM EXPLAINED THE PATIENT MAY REQUIRE OXYGEN AT DISCHARGE. HIS O2 SAT AT REST ON ROOM AIR WAS 87%, WHEN OXYGEN REAPPLIED W/ 2.5 L VIA N/C THE O2 SAT INCREASED TO 92%. PATIENT DOES NOT HAVE NEBULIZER AT HOME. CM HAD SPOKEN WITH DR VIZCAINO. HE FEELS THE PATIENT WILL NEED A NEBULIZER AT DISCHARGE AND POSSIBLY OXYGEN. THE FAMILY HAS NO PREFEREED PROVIDER. JUST WANT TO MAKE SURE IT IS COVERED BY INSURER. CM TO FOLLOW. DCP- Discharge Planning Updated by [email or web address]: Alee Nunez on 03/19/18 4:[address] Patient Name: RIO GUZMAN Admission Status: ER Accout number: [id number] Admission Date: 03-17-2018 : 1940 Admission Diagnosis: Attending: RENA VELASQUEZ Current LOS: 2 Anticipated DC Date: 03-21-2018 Planned Disposition: Home Primary Insurance: MEDICARE A & B Discharge Planning Comments: CM MET WITH PATIENT AND FAMILY REGARDING D/C NEEDS AND PLANS. PATIENTS DAUGHTER (RIYA) SPOKE WITH CM. PATIENT LIVES WITH HIS AND WILL RETURN THERE AT DISCHARGE. PATIENTS DAUGHTER STATED SHE WILL DRIVE PATIENT HOME. THERE ARE 7 STEPS TO ENTER HOME AND NO STAIRS ONCE INSIDE. PATIENT IS INDEPENDENT WITH HIS CARE AND HAS NO DME. PATIENTS PCP IS DR. VELASQUEZ AND USES [facility] [address]. PATIENT DOES NOT WANT HOME HEALTH. CM WILL CONTINUE TO FOLLOW PATIENT WITH D/C NEEDS AND PLANS. [facility] [address] RIYA (DAUGHTER) [phone] Counter Clerk Tractor Parts: Alee Nunez [facility] - Discharge Planning Initial Assessment Updated by [id number]: Alee Nunez on 03/19/18 5:52 pm * Is the patient Alert and Oriented? Yes * How many steps to enter\exit or inside your home? * PCP DR. VELASQUEZ * Pharmacy [facility] [address] * Preadmission Environment Home with Family * ADLs Independent * Equipment None * List name and contact numbers for known caregivers / representatives who currently or will assist patient after discharge: RIYA (DAUGHTER) [phone] * Verbal permission to speak to the caregivers and representatives has been obtained from the patient. Yes * Community resources currently utilized None * Additional services required to return to the preadmission environment? Yes * Can the patient safely return to the preadmission environment? Yes * Has this patient been hospitalized within the prior 30 days at any hospital? No Coverage Notice Reviewer: [id number] Marzena Hess Notice Issued Date-Time: 04/03/2018 10:00 Notice Type: IM Discharge Notice Notice Delivered To: Patient Relationship to Patient: Potato Sorter Name: Delivery Method: HAND - Hand Delivered Krysta Days: Prior Verbal Notification: Recipient Understood Notice: Yes Recipient Signature: Yes Med Rec Note Co-signed by Attending: Coverage Notice Comment: Last DP export: 04/03/18 9:43 a Patient Name: RIO GUZMAN Page 28136 at 1218 All edits/amendments must be made on the electronic document DICTATION DATE: 04/03/181216 SHUTTLE SPOTTER: VITOR 04/03/181216 RPT#: [id number] DC DATE: STATUS: ADM IN [facility] [address] [place] [address] END OF REPORT
--- NOTE | 2018-04-08 09:58 | MORECARE ---
CASE MANAGEMENT DISCHARGE SUMMARY PATIENT: RIO GUZMAN UNIT: [id number] ADM DATE: 03/17/18 AGE: 77 : 40 SEX: M ROOM/BED: D.2201 AUTHOR: CHAN,DOC PHYSICIAN: REFERRING PHYSICIAN: RENA VELASQUEZ MD DATE OF SERVICE: 04/08/18 Discharge Plan Patient Name: RIO GUZMAN Facility: [facility]:[place] : 1940 Planned Disposition: Home Anticipated Discharge Date: 03/21/18 Discharge Date: 04/03/2018 Expected LOS: 4 Initial Reviewer: [email or web address] Initial Review Date: 03/19/2018 Generated: 04/08/18 10:58 am Comments DCP- Discharge Planning Updated by [email or web address]: Elen Hess on 04/03/18 11:[address] PORTABLE O2 DELIVERED TO THE HOSPITAL ROOM DCP- Discharge Planning Updated by [id number]: Elen Hess on 04/03/18 9:[address] PATIENT WILL BE DISCHARGING HOME TODAY HE WOULD LIKE HOME HEALTH, [facility]IAH WITH [facility] HE WILL NEED PORTABLE O2 AND NEBULIZER. ORDER SENT TO [facility] SPOKE WITH [facility]. THEY WILL DELIVER PORTABLE O2 TO THE HOSPITAL AND THE NEBULIZER AND HOME O2 TO THE HOUSE TODAY. IMM HAS BEEN GIVEN AND EXPLAINED. CM WILL CONTINUE TO FOLLOW AND ASSIST WITH DC PLANNING NEEDED. I CALLED [facility] AND SPOKE WITH EDVIN DCP- Discharge Planning Updated by [email or web address]: Tabitha Taylor on 03/24/18 1:[address] LATE ENTRY 03/23/18 1000 CM VISITED WITH THE PATIENT AT THE BEDSIDE. HE WAS SHORT OF BREATH AND WEAK. GAVE CM PERMISSION TO SPEAK WITH THE FAMILY. CM EXPLAINED THE PATIENT MAY REQUIRE OXYGEN AT DISCHARGE. HIS O2 SAT AT REST ON ROOM AIR WAS 87%, WHEN OXYGEN REAPPLIED W/ 2.5 L VIA N/C THE O2 SAT INCREASED TO 92%. PATIENT DOES NOT HAVE NEBULIZER AT HOME. STEVEN HAD SPOKEN WITH DR VIZCAINO. HE FEELS THE PATIENT WILL NEED A NEBULIZER AT DISCHARGE AND POSSIBLY OXYGEN. THE FAMILY HAS NO PREFEREED PROVIDER. JUST WANT TO MAKE SURE IT IS COVERED BY INSURER. CM TO FOLLOW. DCP- Discharge Planning Updated by [email or web address]: Alee Nunez on 03/19/18 4:[address] Patient Name: RIO GUZMAN Admission Status: ER Accout number: [id number] Admission Date: 03-17-2018 : 1940 Admission Diagnosis: Attending: RENA VELASQUEZ Current LOS: 2 Anticipated DC Date: 03-21-2018 Planned Disposition: Home Primary Insurance: MEDICARE A & B Discharge Planning Comments: CM MET WITH PATIENT AND FAMILY REGARDING D/C NEEDS AND PLANS. PATIENTS DAUGHTER (RIYA) SPOKE WITH CM. PATIENT LIVES WITH HIS AND WILL RETURN THERE AT DISCHARGE. PATIENTS DAUGHTER STATED SHE WILL DRIVE PATIENT HOME. THERE ARE 7 STEPS TO ENTER HOME AND NO STAIRS ONCE INSIDE. PATIENT IS INDEPENDENT WITH HIS CARE AND HAS NO DME. PATIENTS PCP IS DR. VELASQUEZ AND USES [facility] [address]. PATIENT DOES NOT WANT HOME HEALTH. CM WILL CONTINUE TO FOLLOW PATIENT WITH D/C NEEDS AND PLANS. [facility] [address] RIYA (DAUGHTER) [phone] Ict Managers: [facility] - Discharge Planning Initial Assessment Updated by [email or web address]: Alee Nunez on 03/19/18 5:52 pm * Is the patient Alert and Oriented? Yes * How many steps to enter\exit or inside your home? * PCP DR. VELASQUEZ * Pharmacy [facility] [address] * Preadmission Environment Home with Family * ADLs Independent * Equipment None * List name and contact numbers for known caregivers / representatives who currently or will assist patient after discharge: RIYA (DAUGHTER) [phone] * Verbal permission to speak to the caregivers and representatives has been obtained from the patient. Yes * Community resources currently utilized None * Additional services required to return to the preadmission environment? Yes * Can the patient safely return to the preadmission environment? Yes * Has this patient been hospitalized within the prior 30 days at any hospital? No Coverage Notice Reviewer: [id number] Marzena Hess Notice Issued Date-Time: 04/03/2018 10:00 Notice Type: IM Discharge Notice Notice Delivered To: Patient Relationship to Patient: Hand Scraper Name: Delivery Method: HAND - Hand Delivered Krysta Days: Prior Verbal Notification: Recipient Understood Notice: Yes Recipient Signature: Yes Med Rec Note Co-signed by Attending: Coverage Notice Comment: Last DP export: 04/03/18 11:18 a Patient Name: RIO GUZMAN Page 22765 at 0958 All edits/amendments must be made on the electronic document DICTATION DATE: 04/08/18957 WATERSHED PROGRAM MANAGER: VITOR 04/08/18957 RPT#: [id number] DC DATE:04/03/18 STATUS: DIS IN [facility] [address] [place] [address] END OF REPORT
[2018-04-16 14:18] LABS: FUNGUS CULTURE RESULT 1 Mucor species (()); FUNGUS MYCOLOGY CULTURE Final report (())
[2018-04-25 10:20] LABS: ACID FAST SMEAR Negative (())
[2018-04-29 16:10] LABS: ACID FAST CULTURE Positive (()); M TUBERCULOSIS Positive (())
== END 2018-04-03 12:46 | disposition home health service (06) | DRG 177 ==
LOC: D.ER 23:05 → D.ICU 03-17 02:10 → D.MS 03-17 02:10 → D.SDCHOLD 04-01 13:26 → D.MS 04-01 13:28
PROVIDERS: Emergency Medicine; Family Medicine; Internal Medicine Pulmonary Disease; Specialist; Student in an Organized Health Care Education/Training Program; ADMIT Legal Medicine
PROC: 0BBK3ZX Excision of Right Lung, Percutaneous Approach, Diagnostic (ICD-10-PCS; principal; 2018-04-01 11:20)
DX: J15.6 Pneumonia due to other Gram-negative bacteria (principal); J96.01 Acute respiratory failure with hypoxia; J44.0 Chronic obstructive pulmonary disease with (acute) lower respiratory infection; J96.11 Chronic respiratory failure with hypoxia; J44.1 Chronic obstructive pulmonary disease with (acute) exacerbation; J18.9 Pneumonia, unspecified organism; A31.0 Pulmonary mycobacterial infection; I25.10 Atherosclerotic heart disease of native coronary artery without angina pectoris; D64.9 Anemia, unspecified

== ENCOUNTER → 2018-04-18 16:21 | Outpatient (CLI) | payer MEDICARE, OTHER ==
[2018-03-29 12:44] VITALS: BMI 27.9
[~2018-04-18 16:21] MED LIST changes: +ADVAIR HFA 230-12 GM INH; +COMBIVENT RESPIM4 GM INH; +IPRAT-ALBUT 0.5-3 ML UPD; +PREDNISONE20 MG PO; +PULMICORT0.5 MG/21 INH; +VALTREX500 MG PO
== END | disposition home or self-care (01) ==
LOC: D.RAD 16:21
DX: J18.9 Pneumonia, unspecified organism (principal)

== ENCOUNTER 2018-06-15 14:39 | Emergency (ER) | payer MEDICARE, OTHER ==
[2018-06-15] MEDS ORDERED: [UNRECOGNIZED DRUG - OTHER] PO (14:55)
[2018-06-15] MEDS ORDERED: RIFADIN IV (14:55)
[2018-06-15] MEDS ORDERED: INH PO (14:56)
[2018-06-15] MEDS ORDERED: B6 PO (14:57)
[2018-06-15] MEDS ORDERED: [UNRECOGNIZED DRUG - CODE] PO (14:58)
[2018-06-15 15:16] LABS: BASOPHILS 0.2 % (0-2); EOSINOPHILS 0.2 % (0-7); HEMATOCRIT 42.7 % (42.0-54.0); HEMOGLOBIN 14.8 g/dL (13.5-17.5); IMMATURE GRANULOCYTES 0.2 % (0-5); LYMPHOCYTES 23.2 % (15-50); MCHC 34.7 g/dL (31.0-37.0); MCV 89.5 fL (80.0-100.0); MEAN PLATELET VOLUME 8.8 fL (7.4-10.4); MONOCYTES 10.5 % (2-11); NEUTROPHILS 65.7 % (40-80); PLATELET COUNT 85 10x3/uL (130-400); RBC 4.77 10x6/uL (4.20-6.10); RDW 13.1 % (11.5-14.5); WBC 4.8 10x3/uL (4.8-10.8)
[2018-06-15 15:24] LABS: APTT 24.1 SECONDS (22.8-39.4); INR 0.98 (0.85-1.17); PROTIME 12.5 SECONDS (11.6-15.0)
[2018-06-15 15:30] LABS: ALBUMIN 3.8 g/dL (3.4-5.0); ALKALINE PHOSPHATASE 56 U/L (46-116); ALT (SGPT) 18 U/L (10-68); BILIRUBIN - TOTAL 0.82 mg/dL (0.2-1.3); CALC OSMOLALITY 279 mosm/kg (275-300); CALCIUM 8.9 mg/dL (8.5-10.1); CHLORIDE - SERUM 102 mmol/L (98-107); CREATININE - SERUM 0.9 mg/dL (0.6-1.3); GLUCOSE 111 mg/dL (74-106); POTASSIUM - SERUM 3.8 mmol/L (3.5-5.1); PROTEIN - SERUM 7.5 g/dL (6.4-8.2); SODIUM 138 mmol/L (136-145); UREA NITROGEN 20 mg/dL (7-18); eGFR NON AFRICAN AMERICAN 87 mL/min (90-120)
[2018-06-15 15:41] LABS: CKMB 0.6 U/L (0.0-3.6); CREATINE KINASE 38 UL (21-232); PRO BNP 65 pg/mL (0-450); TROPONIN-I 0.017 ng/mL (0.000-0.060)
[2018-06-15] MEDS ORDERED: ALBUTEROL SULF8.5 GM INH (17:11)
[2018-06-15] MEDS ORDERED: VIBRAMYCIN 100100 MG PO (17:11)
== END 2018-06-15 17:56 | disposition home or self-care (01) ==
LOC: D.ER 14:39
PROVIDERS: Emergency Medicine
DX: J47.9 Bronchiectasis, uncomplicated (principal)

== ENCOUNTER → 2018-07-01 11:05 | Outpatient (CLI) | payer MEDICARE, OTHER ==
[2018-06-15 14:46] VITALS: BMI 27.3
[~2018-07-01 11:05] MED LIST changes: +ALBUTEROL SULF8.5 GM INH; +B6 PO; +INH PO; +RIFADIN IV; +VIBRAMYCIN 100100 MG PO; +[UNRECOGNIZED DRUG - CODE] PO; +[UNRECOGNIZED DRUG - OTHER] PO
== END | disposition home or self-care (01) ==
LOC: D.RAD 11:05
PROVIDERS: ATTEND Internal Medicine Infectious Disease
DX: A15.9 Respiratory tuberculosis unspecified (principal)

== ENCOUNTER 2018-08-17 13:31 | Emergency (ER) | payer MEDICARE, OTHER ==
[~2018-08-17] VITALS: Ht 177.8 cm; Wt 85.5 kg
[2018-08-17 13:34] VITALS: Ht 177.8 cm; Wt 85.5 kg
[2018-08-17] MEDS ORDERED: ATARAX 25 MG TA25 MG PO (15:13)
[2018-08-17] MEDS ORDERED: MUPIROCIN22 GM TOPICAL (15:14)
[2018-08-17 15:37] VITALS: BP 132/68
== END 2018-08-17 15:38 | disposition home or self-care (01) ==
LOC: D.ER 13:31
DX: L25.9 Unspecified contact dermatitis, unspecified cause (principal)

== ENCOUNTER → 2018-08-29 08:42 | Outpatient (CLI) | payer MEDICARE, OTHER ==
[2018-08-17 13:34] VITALS: BMI 27.0
[~2018-08-29 08:42] MED LIST changes: +ATARAX 25 MG TA25 MG PO; +MUPIROCIN22 GM TOPICAL
== END | disposition home or self-care (01) ==
LOC: D.RAD 08:42
PROVIDERS: ATTEND Internal Medicine Infectious Disease
DX: A15.9 Respiratory tuberculosis unspecified (principal)

== ENCOUNTER → 2018-10-30 09:12 | Outpatient (CLI) | payer MEDICARE, OTHER ==
[2018-08-17 13:34] VITALS: BMI 27.0
== END | disposition home or self-care (01) ==
LOC: D.RAD 09:12
PROVIDERS: ATTEND Internal Medicine Infectious Disease
DX: A15.9 Respiratory tuberculosis unspecified (principal)

== ENCOUNTER → 2019-01-15 08:34 | Outpatient (CLI) | payer MEDICARE, OTHER ==
[2018-08-17 13:34] VITALS: BMI 27.0
== END | disposition home or self-care (01) ==
LOC: D.RAD 08:34
PROVIDERS: ATTEND Internal Medicine Infectious Disease
DX: A15.9 Respiratory tuberculosis unspecified (principal)

== ENCOUNTER → 2019-04-24 10:39 | Outpatient (CLI) | payer MEDICARE, OTHER ==
[2018-08-17 13:34] VITALS: BMI 27.0
== END | disposition home or self-care (01) ==
LOC: D.CT 04-21 09:00
PROVIDERS: ATTEND Internal Medicine Pulmonary Disease
DX: R91.8 Other nonspecific abnormal finding of lung field (principal)

== ENCOUNTER 2019-10-03 10:47 | Emergency (ER) | payer MEDICARE, OTHER ==
[2019-10-03 10:59] VITALS: Ht 177.8 cm
[2019-10-03] MEDS ORDERED: CLEOCIN HCL300 MG PO (11:46)
[2019-10-03 11:55] VITALS: BP 132/76
== END 2019-10-03 11:56 | disposition home or self-care (01) ==
LOC: D.ER 10:47
DX: L73.9 Follicular disorder, unspecified (principal); L02.11 Cutaneous abscess of neck

== ENCOUNTER → 2020-07-15 10:05 | Outpatient (CLI) | payer MEDICARE, OTHER ==
[~2020-07-15 10:05] MED LIST changes: +CLEOCIN HCL300 MG PO
== END | disposition home or self-care (01) ==
LOC: D.LAB 10:05
PROVIDERS: ATTEND Internal Medicine Pulmonary Disease
DX: Z11.52 Encounter for screening for COVID-19 (principal)